=== PATIENT | male | born 1955 | race Caucasian/White ===

== ENCOUNTER 2020-05-20 14:29 | Inpatient (IN) | payer MEDICARE, BC ==
[~2020-05-20] VITALS: Ht 170.2 cm; Wt 65.3 kg
--- NOTE | 2020-05-20 14:29 | NUR ---
PT BIB [facility] C/O NEAR SYNCOPE/WEAKNESS PER EMS. PT IS AAOX3, NOT IN RESPIRATORY DISTRESS, HOOKED TO TOOL HONING MACHINE SET UP OPERATOR, KEPT RESTED AND COMFORTABLE. WILL CONTINUE TO MONITOR.
--- NOTE | 2020-05-20 14:50 | NUR ---
IV LINE ESTABLISHED BLOOD DRAWN AND SENT TO LAB.
--- NOTE | 2020-05-20 14:54 | NUR ---
SEEN AND EXAMINED BY .
--- NOTE | 2020-05-20 14:55 | NUR ---
URINAL GIVEN BUT UNABLE TO PROVIDE URINE SPECIMEN THIS TIME.
[2020-05-20] MEDS ORDERED: IV NS 0.9% 1,000 ML BAG IV ONE (15:00)
--- NOTE | 2020-05-20 15:02 | NUR ---
PCAS AT BEDSIDE FOR XRAY.
[2020-05-20 15:08] LABS: BASOPHILS % (AUTO) 0.3 % (0.0-2.0); EOSINOPHILS % (AUTO) 0.1 % (0.0-6.0); HEMATOCRIT 37 % (39-51); HEMOGLOBIN 12.2 g/dL (13.5-17.5); LYMPHOCYTES # (AUTO) 0.2 /CMM (0.8-4.8); LYMPHOCYTES % (AUTO) 4.8 % (20.0-44.0); MEAN CORPUSCULAR HGB CONC 33 g/dl (31.0-36.0); MEAN CORPUSCULAR VOLUME 95 fL (80-96); MONOCYTES # (AUTO) 0.2 /CMM (0.1-1.30); NEUTROPHILS # (AUTO) 4.7 /CMM (1.8-8.9); NEUTROPHILS % (AUTO) 91.8 % (43.0-81.0); PLATELET COUNT (AUTO) 225 /CMM (150-450); RED BLOOD CELL COUNT(AUTO) 3.91 MIL/uL (4.5-6.0); WHITE BLOOD COUNT (AUTO) 5.2 K/uL (4.3-11.0)
[2020-05-20 15:18] LABS: CALCIUM, SERUM 9.2 mg/dL (8.5-10.1); CREATININE 0.9 mg/dL (0.6-1.3); POTASSIUM 3.2 mmol/L (3.5-5.1)
[2020-05-20 15:24] LABS: BILIRUBIN,DIRECT 0.1 mg/dL (0.0-0.2); BILIRUBIN,TOTAL 0.3 mg/dL (0.2-1.0)
--- NOTE | 2020-05-20 15:32 | NUR ---
URINE SPECIMEN COLLECTED AND SENT TO LAB.
[2020-05-20 15:52] LABS: APPEARANCE,URINE Clear (CLEAR); BILIRUBIN,URINE Negative (NEGATIVE); BLOOD, URINE Moderate Ery/uL (NEGATIVE); COLOR,URINE Yellow (YELLOW); KETONES,URINE 80 (NEGATIVE); LEUKOCYTE ESTERASE ,URINE Negative (NEGATIVE); NITRITE, URINE Negative (NEGATIVE); PH,URINE 5.5 (5.0-8.0); PROTEIN,URINE Negative (NEGATIVE); UGLUCOSE Negative (NEGATIVE); UROBILINOGEN,URINE 0.2 EU/dL (0.2)
[2020-05-20 16:17] LABS: BACTERIA,URINE Few /HPF (None Seen); RBC,URINE 21-50 /HPF (0-2); SQUAMOUS EPITHELIAL CELL,UR Few /HPF (None Seen)
--- NOTE | 2020-05-20 17:24 | NUR ---
CALLED PT RELATIVE CARON [phone]
[2020-05-20] MEDS ORDERED: CEFTRIAXONE 1GM BAG (ER ONLY) 1 GM/50 ML PIGGYBACK IV ONE (19:00)
[2020-05-20] MEDS ORDERED: ONDANSETRON HCL/PF 4 MG/2 ML VIAL IV ONE (19:00)
[2020-05-20] MEDS ORDERED: AZITHROMYCIN 500 MG in IV D5W 250 ML IV ONE (19:00)
[2020-05-20] MEDS ORDERED: HYDROMORPHONE 1 MG/1 ML DISP.SYRIN IV ONE (19:00)
[2020-05-20] MEDS ORDERED: CT SWABBABLE VALVE TRANS SET 1 EA INFUS.SET MC ONE (19:01)
[2020-05-20] MEDS ORDERED: IV NS 0.9% 250 ML IV ONE (19:01)
[2020-05-20] MEDS ORDERED: IOHEXOL-300 100 ML VIAL IV ONE (19:01)
--- NOTE | 2020-05-20 19:07 | NUR ---
REPORT GIVEN TO CJ BRAN FOR AMANDA.
[2020-05-20] MEDS ORDERED: HYDROMORPHONE 1 MG/1 ML DISP.SYRIN ONE (19:12)
[2020-05-20] MEDS ORDERED: ONDANSETRON HCL/PF 4 MG/2 ML VIAL ONE (19:12)
[2020-05-20] MEDS ORDERED: CEFTRIAXONE 1GM BAG (ER ONLY) 50 ML IV ONE (19:12)
--- NOTE | 2020-05-20 19:21 | NUR ---
COVID SAMPLE COLLECTED AND TAKEN TO LAB
--- NOTE | 2020-05-20 19:36 | NUR ---
CALLED RE[facility] RICE FOR ADMISSION
--- NOTE | 2020-05-20 19:56 | NUR ---
CARON LARAIN, DAUGHTER,
--- NOTE | 2020-05-20 19:57 | NUR ---
MIDLINE NURSE FINISHED WITH MIDLINE PROCEDURE MICHAEL 18G ACCESS ESTABLISHED
[2020-05-20] MEDS ORDERED: AZITHROMYCIN 500 MG VIAL ONE (20:03)
--- NOTE | 2020-05-20 20:15 | NUR ---
CALL FROM LAB, COVID 19 NEGATIVE
--- NOTE | 2020-05-20 21:11 | NUR ---
PATIENT TAKEN TO Carlyle Cardona
--- NOTE | 2020-05-20 21:21 | NUR ---
PATIENT RETURNED FROM CT.
[2020-05-20] MEDS ORDERED: HYDROCODONE/APAP 5/325MG TABLET PO PRN (21:30)
[2020-05-20] MEDS ORDERED: ONDANSETRON HCL/PF 4 MG/2 ML VIAL IVP PRN (21:30)
[2020-05-20] MEDS ORDERED: MAGNESIUM HYDROXIDE 30 ML UDC PO PRN (21:30)
[2020-05-20] MEDS ORDERED: ZOLPIDEM TARTRATE 5 MG TABLET PO PRN (21:30)
[2020-05-20] MEDS ORDERED: ACETAMINOPHEN 325 MG TABLET PO PRN (21:30)
[2020-05-20] MEDS ORDERED: Z GUARD REMEDY 2 OZ OINT TP PRN (21:30)
[2020-05-20] MEDS ORDERED: MAG HYDROX/AL HYDROX/SIMETH 30 ML UDC PO PRN (21:30)
--- NOTE | 2020-05-20 21:46 | NUR ---
REPORT GIVEN TO HANNAH CORONA FOR AMANDA.
--- NOTE | 2020-05-20 22:16 | NUR ---
PATIENT AMBULATED TO THE RESTROOM WITH ASSISTANCE
--- NOTE | 2020-05-20 22:24 | NUR ---
REPORT GIVEN TO HANNAH CORONA REGARDING CT SCAN RESULTS. PATIENT OKAY TO GO UP TO ASSIGNED ROOM.
[2020-05-20 22:30] VITALS: BP_SYST 172; BP_SYST 180; BP_DIAS 83; BP_DIAS 89
--- NOTE | 2020-05-20 22:30 | NUR ---
MS CONSULTATIVE SALES ASSOCIATE NOTE RECEIVED PATIENT VIA GURNEY. TRANSFERRED TO BED. PATIENT IS NONVERBAL. NOT ANSWERING QUESTIONS. TOLERATING ROOM AIR. RESPIRATIONS ARE EVEN AND UNLABORED. NO S/S SOB NOTED. PATIENT IS POSSIBLY IN PAIN SHOWN VIA HIGH BLOOD PRESSURE. DOCTOR INFORMED ME TO CALL FAMILY TO OBTAINED MED RECON AND PATIENTS HISTORY. IV ACCESS IN MICHAEL MIDLINE AND LEFT HAND #18 PATENT AND SALINE LOCKED. INFORMED PATIENT HE IS NPO STATUS, INFORMED MECHANICAL ENGINEERING TECHNOLOGIST OF NPO STATUS, NPO SIGN PLACED ON DOORWAY. INATAL PHYSICAL ASSESSMENT DONE AT THIS TIME. SKIN ASSESSMENT COMPLETED, PHOTOS TAKEN AND PLACED IN CHART. MECHANICAL ENGINEERING TECHNOLOGIST OBTAINED VITALS SIGNS AND COMPLETED BELONGING LIST. BED IS LOW AND LOCKED, HOB FLAT, SIDE RAILS UP X3. BED ALARM ON. PAXTON LIGHT WITHIN REACH. WILL CONTINUE TO MONITOR.
--- NOTE | 2020-05-20 22:30 | NUR ---
PATIENT TAKEN UP TO ASSIGNED ROOM
[2020-05-20] MEDS ORDERED: DEXL60CA3 PO (23:19)
[2020-05-20] MEDS ORDERED: CARI350T PO (23:19)
[2020-05-20] MEDS ORDERED: LORA-259 IV (23:19)
[2020-05-20] MEDS ORDERED: HYDR8TAB2 IV (23:19)
[2020-05-20] MEDS ORDERED: ZOLP10TA2 PO (23:19)
[2020-05-20] MEDS ORDERED: MINO2.5T PO (23:19)
--- NOTE | 2020-05-20 23:30 | NUR ---
MS RN NOTE CALLED FAMILY TO OBTAIN PATIENT HISTORY AND MEDICATION. INPUT MEDICATIONS TO MED RECON. CALLED AND INFORMED TRANSPORTATION DRIVER MD DR. NUNEZ OF HISTORYS AND MEDICATION. DOCTOR STATED WILL REVIEW MEDS.
[2020-05-21] VITALS (37 sets, daily range): BP systolic 125–205; BP diastolic 61–96
--- NOTE | 2020-05-21 03:14 | NUR ---
ms rn note administered prn [id number] d/t episode of emesis. will continue to monitor.
--- NOTE | 2020-05-21 03:30 | NUR ---
ms rn note [id number] called [facility] and stucco mason MD Dr. ellis returned my call, informed him patient had a rapid response called on him d/t an episode of emesis and is foaming at the mouth, RN states she witnessed a seizure. MD telephone ordered procalcitonin, blood culture, and 2mg ativan when patient seizes again. orders read back noted and carried out.
--- NOTE | 2020-05-21 03:50 | NUR ---
ms rn note - rapid response patient had an episode of emesis. auto battery builder can to inform RN. when she returned patient began foaming at this mouth and seizing. rapid response called at 032. blood sugar taken 145. 4 mg zofran given. vitals taken 321 axillary temp 100.5 bp 171/86 hr 99 rr 25 o2 sat 91% on room air. patient in high fowlers, suction set up . no longer seizing. 032 bp 150/74 hr 89 o2 sat 91%. patient placed on oxygen 15l via mask. 325 bp 161/71 hr 76 o2 sat 95% on 15l mask. compensation consulting manager MD Dr. Casanova called. MD orders: STAT procalcitonin, blood culture, 2mg ativan if patient seizes again. asked doctor is he would like to order a chest xray d/t patients vomited and o2 sat now 91% on room. MD didnt want to order chest xray at this time because its too soon to tell. lab called to obtain STAT labs. 033 bp 148/68 hr 56 o2 sat 95% on 15l mask. rapid ended patient also placed on tele for observation, seizure precautions in place.
[2020-05-21] MEDS ORDERED: LORAZEPAM INJ 2 MG/ML VIAL IV PRN (04:00)
--- NOTE | 2020-05-21 04:01 | NUR ---
ms rn note adminsitered prn ativan 2mg for seizure. will continue to monitor.
[2020-05-21 04:50] LABS: BASOPHILS % (AUTO) 0.2 % (0.0-2.0); EOSINOPHILS % (AUTO) 0.1 % (0.0-6.0); HEMATOCRIT 37 % (39-51); HEMOGLOBIN 12.4 g/dL (13.5-17.5); LYMPHOCYTES # (AUTO) 0.2 /CMM (0.8-4.8); LYMPHOCYTES % (AUTO) 2.7 % (20.0-44.0); MEAN CORPUSCULAR HGB CONC 33 g/dl (31.0-36.0); MEAN CORPUSCULAR VOLUME 93 fL (80-96); MONOCYTES # (AUTO) 0.3 /CMM (0.1-1.30); NEUTROPHILS # (AUTO) 6.3 /CMM (1.8-8.9); PLATELET COUNT (AUTO) 240 /CMM (150-450); RED BLOOD CELL COUNT(AUTO) 3.99 MIL/uL (4.5-6.0); WHITE BLOOD COUNT (AUTO) 6.8 K/uL (4.3-11.0)
[2020-05-21 05:01] LABS: CALCIUM, SERUM 8.6 mg/dL (8.5-10.1); CREATININE 0.9 mg/dL (0.6-1.3); MAGNESIUM 1.9 mg/dL (1.8-2.4); PHOSPHORUS 1.8 mg/dL (2.5-4.9)
[2020-05-21 05:05] LABS: POTASSIUM 2.7 mmol/L (3.5-5.1)
--- NOTE | 2020-05-21 05:42 | NUR ---
ms rn note received a call from lab to report a critical lab for potassium 2.7. call electronics engineering technologist md Dr. Jocelyne MD telephone order 60meq potassium iv. order read back noted and carried out. also informed that patient is having head pain 03/12 but is npo and nothing is ordered iv. states to monitor because patient just had a seizure. also informed that the daughter is very upset that the patient is in this hospital d/t her mother at [facility]. she is also upset that patient has not received his pain medication or ativan as he takes at home. informed me we are not giving any pain medication or ativan that can alter patietnt d/t patient is altered and findings only show constipation at the moment and constipation should not cause alteredness. will inform daughter when calls again for update. will continue to monitor patient.
[2020-05-21] MEDS: POTASSIUM CHLORIDE 10 MEQ/50 ML PREMIXED IVPB FOR PERIPHERAL LINE IV SCH ×4 (06:17→11:37)
--- NOTE | 2020-05-21 06:45 | NUR ---
ms rn note Dr. Ham saw the patient ordered STAT ABG and CXR. called [facility] exchange for information assoc MD Dr. Casanova.
--- NOTE | 2020-05-21 07:13 | NUR ---
ms rn note transferred patient to icu room 257. patient is nonverbal, on 15l nonrebreather mask. rapid respirations, sounds congested. tele monitor attached to patient hr in 90s. belongings taken, chart taken. report given at bedside.
[2020-05-21] MEDS ORDERED: POTASSIUM PHOSPHATE MM 15 MMOL in IV NS 0.9% 250 ML IV SCH (07:30)
--- NOTE | 2020-05-21 08:00 | NUR ---
BUDGET TECHNICIAN RECEIVED PT FROM 3W FOR RESP DISTRESS AND SEIZURES. PT MOVING, TRYING TO GET UP. DOES NOT FOLLOW COMMANDS. O2 AT [address]
--- NOTE | 2020-05-21 08:01 | NUR ---
ms rn note informed chandler , daughter, that patient was transferred to the ICU room 257.
[2020-05-21 08:18] LABS: ABG BASE EXCESS -0.8 mmol/L; ABG OXYGEN SATURATION 96.6 % (92.0-98.5); ABG PCO2 30.8 mmHg (35.0-45.0); AaDO2 599.2 mmHg; COHb 0.1 % (0.5-1.5); MetHb 0.2 % (0.0-1.5); O2Hb 96.3 % (94.0-97.0); SITE, ABG Left Radial; VENT MODE, BG NRB MASK
[2020-05-21] MEDS: POTASSIUM PHOSPHATE MM 7.5 MMOL in IV D5W 100 ML IV SCH ×2 (08:57→12:01)
--- NOTE | 2020-05-21 09:39 | NUR ---
WOUND CARE CONSULT: PT UNSTABLE TO BE TURNED FOR SKIN ASSESSMENT AT THIS TIME. REVIEWED CHART, NURSING DOCUMENTATION AND PHOTO WHICH INDICATE VERY RED INNER BUTTOCKS, PRESENT ON ADMISSION. PER SCANNER OPERATOR, PT HAD SEVERE DIARRHEA. RECOMMENDATIONS MADE FOR SKIN CARE AND PROTECTION. DISCUSSED WITH NURSING STAFF. PT IS ON OSWALDO ISOFLEX LOW AIRLOSS BED. WILL SEE PRN. HILL IN AGREEMENT WITH PLAN OF CARE.
[2020-05-21] MEDS ORDERED: PROPOFOL 200 MG/20 ML VIAL IV ONE (11:00)
[2020-05-21] MEDS ORDERED: SUCCINYLCHOLINE CHLORIDE 20 MG/ML VIAL ONE (11:00)
--- NOTE | 2020-05-21 11:00 | NUR ---
PLANT PRODUCTION MANAGER PT FOUND GURGLING, UNABLE TO CLEAR AIRWAY. ORALLY AND NASOPHARYNGEALLY SUCTIONED LARGE AMOUNT DARK BROWN FLUID. PT HAD EPISODE EMESIS, LARGE AMOUNT DARK BROWN SECRETIONS. DR ARIAS MADE AWARE. ORDER FOR NGT RECEIVED AND PLACED. POSITION VERIFIED BY AUSCULTATION AND ASPIRATION OF DARK BROWN GASTRIC CONTENTS WITH SYRINGE. DECISION TO INTUBATE PT FOR AIRWAY PROTECTION RECEIVED FROM DR ARIAS. MEMBERSHIP SALES MANAGER NOTIFIED, DR GRECO SUCCESSFULLY INTUBATED PT. CXR OBTAINED FOR PLACEMENT. NGT REMAINED INTACT. DIPRIVAN DRIP TO BE STARTED WHEN AVAILABLE FOR SEDATION. SPOKE WITH DAUGHTER BY PHONE AND INFORMED HER OF PT'S CONDITION.
[2020-05-21] MEDS: PROPOFOL 100 ML IV PRN ×4 (11:35→22:19)
[2020-05-21] MEDS: METRONIDAZOLE 500MG/ NS 100ML 500 MG in PREMIX 1 EA IV SCH ×2 (11:37→17:21)
[2020-05-21 11:51] LABS: ABG BASE EXCESS 2.5 mmol/L; ABG OXYGEN SATURATION 99.7 % (92.0-98.5); ABG PH 7.538 (7.350-7.450); ABG PO2 475.9 mmHg (75.0-100.0); AaDO2 208.1 mmHg; COHb 0.3 % (0.5-1.5); MetHb 0.3 % (0.0-1.5); O2Hb 99.1 % (94.0-97.0); PEEP,BG 5 cm H2O; SITE, ABG Left Radial; VT, ABG 500 mL
--- NOTE | 2020-05-21 12:00 | NUR ---
ICU/RN: RECEIVED REPORT FROM RICHA CORONA TO CONTINUE CARE OF PT. PT INTUBATED AT 1100. ETT 8.0 AC 14, 450, 50%, +5, TOLERATING WELL, NO ACUTE DISTRESS NOTED. SINUS ON TELE. PT AGITATED, STARTED ON DIPRIVAN. NG TUBE IN PLACE TO LIS. ALL NEEDS WILL BE ATTENDED TO, SAFETY MEASURES TAKEN. PLACED ON BILATERAL SOFT WRIST RESTRAINTS FOR SAFETY. RIGHT UA MIDLINE AND PIV PATENT AND INTACT. WILL CONTINUE TO MONITOR AND ASSESS. ORDERS RECEIVED FOR EEG, WILL FOLLOW UP.
[2020-05-21] MEDS: CLOTRIMAZOLE 1% 15 GM TUBE TP SCH ×2 (12:02→17:18)
[2020-05-21] MEDS: LORAZEPAM INJ 2 MG/ML VIAL IV SCH ×2 (15:00→20:00)
[2020-05-21] MEDS: HYDROMORPHONE INJ 2 MG/ML DISP.SYRIN IV SCH ×2 (15:01→21:09)
[2020-05-21 16:42] LABS: ALCOHOL, BLOOD < 3 mg/dL (0-0)
[2020-05-21 16:48] LABS: ALBUMIN 3.3 g/dL (3.4-5.0); BILIRUBIN,TOTAL 0.4 mg/dL (0.2-1.0); CALCIUM, SERUM 9.1 mg/dL (8.5-10.1); CREATININE 0.7 mg/dL (0.6-1.3); POTASSIUM 2.9 mmol/L (3.5-5.1); TOTAL PROTEIN, SERUM 7.4 g/dL (6.4-8.2)
--- NOTE | 2020-05-21 18:01 | NUR ---
ICU/RN: EEG DONE, AWAITING NEUROLOGIST INTERPRETATION
--- NOTE | 2020-05-21 18:30 | NUR ---
ICU/RN: INFORMED LIYAH FOX REGARDING 1500ML RED/BLACK OUTPUT FROM LIS NG SUCTION. NEW ORDERS RECEIVED. WILL ENDORSE TO ACCOUNT SERVICES COORDINATOR
[2020-05-21] MEDS: IV NS 0.9% 1,000 ML IV PRN (18:31)
[2020-05-21] MEDS ORDERED: AZITHROMYCIN 500 MG in IV D5W 250 ML IV SCH ×4 (19:00)
--- NOTE | 2020-05-21 19:23 | NUR ---
ICU/RN ENDING NOTES,AM REPORT ENDORSED TO NIGHT NURSE AMANDA.PT INTUBATED ON VENT SETTINGS ORDERED. DIPRIVAN INFUSING FOR SEDATION. BILATERAL SOFT WRIST RESTRAINTS IN PLACE, ASSESSED PER PROTOCOL. ALL NEEDS ATTENDED TO, SAFETY MEASURES TAKEN, BED IN LOW POSITION, SIDE RAILS UP, CALL LIGHT WITHIN REACH. NG TO LIS, OUTPUT NOTED.
[2020-05-21] MEDS: POTASSIUM CL. PREMIX PERIPHER. 50 ML IV SCH ×4 (19:49→23:18)
--- NOTE | 2020-05-21 20:00 | NUR ---
SERVICE UNIT OPERATOR. INITIAL ASSESSMENTRECEIVED THE PT REST ON THE BED. ORALLY INTUBATED. SEDATED WITH DIPRIVAN. ETT #8.LIP 23,AC 14,TV 450,FIO2 50%,PEEP 5. SAT 98%. NO ACUTE DISTRESS NOTED. DUTY ENGINEER SHOWING NSR. IV RT UPPER ARM MID LINE. IVF NS 125ML/H, DIPRIVAN 60 MCG/KG/MIN, HOB ELEVATED. RT NARE NGT INTACT. LOW INTERMITTENT SUCTION. FC PATENT URINE DRAINING. NPO. JORGITO SOFT WRIST RESTRAINT CHECKED AND RELEASED. NO INJURY OR REDNESS NOTED. AFEBRILE. WILL CONTINUE TO MONITOR VITALS.
[2020-05-21 20:13] LABS: BASOPHILS # (AUTO) 0.1 /CMM (0.0-0.2); BASOPHILS % (AUTO) 0.5 % (0.0-2.0); HEMATOCRIT 39 % (39-51); HEMOGLOBIN 12.8 g/dL (13.5-17.5); LYMPHOCYTES # (AUTO) 0.5 /CMM (0.8-4.8); LYMPHOCYTES % (AUTO) 3.2 % (20.0-44.0); MEAN CORPUSCULAR HGB CONC 33 g/dl (31.0-36.0); MEAN CORPUSCULAR VOLUME 94 fL (80-96); MONOCYTES # (AUTO) 0.7 /CMM (0.1-1.30); MONOCYTES % (AUTO) 4.4 % (2.0-12.0); NEUTROPHILS # (AUTO) 15.2 /CMM (1.8-8.9); NEUTROPHILS % (AUTO) 91.9 % (43.0-81.0); PLATELET COUNT (AUTO) 241 /CMM (150-450); RED BLOOD CELL COUNT(AUTO) 4.14 MIL/uL (4.5-6.0); WHITE BLOOD COUNT (AUTO) 16.6 K/uL (4.3-11.0)
[2020-05-21] MEDS: CEFTRIAXONE 1 G in IV D5W 50 ML IV SCH (21:09)
--- NOTE | 2020-05-21 21:10 | NUR ---
SENIOR TALENT MANAGEMENT CONSULTANT. 1999 FABIAN HELD. PT ORALLY INTUBATED. SEDATED WITH DIPRIVAN.
[2020-05-22] VITALS (40 sets, daily range): BP systolic 97–168; BP diastolic 57–77
[2020-05-22] MEDS: PROPOFOL 100 ML IV PRN ×6 (01:37→23:32)
[2020-05-22] MEDS: LORAZEPAM INJ 2 MG/ML VIAL IV SCH ×4 (02:00→20:00)
--- NOTE | 2020-05-22 02:16 | NUR ---
PIPE SMOKER MACHINE OPERATOR. 0200 ATIVAN NOT GIVEN. PT HAS NO SEIZURE ACTIVITY NOTED, PT ON DIPRIVAN DRIP
[2020-05-22] MEDS: HYDROMORPHONE INJ 2 MG/ML DISP.SYRIN IV SCH ×4 (02:20→20:00)
[2020-05-22] MEDS: METRONIDAZOLE 500MG/ NS 100ML 500 MG in PREMIX 1 EA IV SCH ×3 (02:21→17:19)
[2020-05-22 04:17] LABS: BASOPHILS % (AUTO) 0.1 % (0.0-2.0); HEMATOCRIT 38 % (39-51); HEMOGLOBIN 12.6 g/dL (13.5-17.5); LYMPHOCYTES # (AUTO) 0.6 /CMM (0.8-4.8); LYMPHOCYTES % (AUTO) 6.1 % (20.0-44.0); MEAN CORPUSCULAR HGB CONC 33 g/dl (31.0-36.0); MEAN CORPUSCULAR VOLUME 94 fL (80-96); MONOCYTES # (AUTO) 0.6 /CMM (0.1-1.30); NEUTROPHILS # (AUTO) 9.1 /CMM (1.8-8.9); NEUTROPHILS % (AUTO) 87.8 % (43.0-81.0); PLATELET COUNT (AUTO) 229 /CMM (150-450); RED BLOOD CELL COUNT(AUTO) 4.02 MIL/uL (4.5-6.0); WHITE BLOOD COUNT (AUTO) 10.4 K/uL (4.3-11.0)
[2020-05-22 04:37] LABS: ALBUMIN 3.1 g/dL (3.4-5.0); BILIRUBIN,TOTAL 0.3 mg/dL (0.2-1.0); CALCIUM, SERUM 8.5 mg/dL (8.5-10.1); CREATININE 0.8 mg/dL (0.6-1.3); MAGNESIUM 2.1 mg/dL (1.8-2.4); PHOSPHORUS 3.2 mg/dL (2.5-4.9); TOTAL PROTEIN, SERUM 7.1 g/dL (6.4-8.2)
[2020-05-22 04:59] LABS: POTASSIUM 2.5 mmol/L (3.5-5.1)
--- NOTE | 2020-05-22 05:04 | NUR ---
SCALE TANK OPERATOR. AM CARE, ORAL CARE, BED BATH GIVEN. REMAINING SAME VENT SETTING TOLERATED WELL. SAT 99%. NO ACUTE DISTRESS NOTED.THREE DIMENSIONAL MAP MODELER SHOWING NSR. IV RT UPPER ARM MID LINE IVF NS 125 ML/H.FC PATENT. URINE DRAINING,JORGITO SOFT WRIST RESTRAINT CHECKED AND RELEASED. NO INJURY OR REDNESS NOTED. HOB ELEVATED. NGT LOW INTERMITTENT SUCTION. WILL CONTINUE TO MONITOR VITALS.
[2020-05-22] MEDS: IV NS 0.9% 1,000 ML IV PRN ×2 (05:18→14:47)
[2020-05-22] MEDS: POTASSIUM CL. PREMIX PERIPHER. 50 ML IV SCH ×12 (06:53→18:29)
[2020-05-22] MEDS: ENOXAPARIN SODIUM 40 MG/0.4 ML DISP.SYRIN SQ SCH (08:07)
[2020-05-22] MEDS: CLOTRIMAZOLE 1% 15 GM TUBE TP SCH ×2 (08:09→17:16)
--- NOTE | 2020-05-22 08:32 | NUR ---
received pt from advice clerk, sedated on Diprivan at 90mcg, SR, intubated, sat well, lungs partially congested, no edema, NG to ILS coffee ground emesis, 1BM, f/c OK output, v/s stable, no pain, pt turned and repositioned.
--- NOTE | 2020-05-22 09:00 | NUR ---
Lovenox not given - pt is having coffee ground emesis.
[2020-05-22] MEDS: FAMOTIDINE/PF INJ 20 MG/2 ML VIAL IV SCH ×2 (11:07→20:55)
--- NOTE | 2020-05-22 16:21 | NUR ---
pt is resting in the bed, sedated on Diprivan at 80mcg, SR, sat well, coffee ground emesis suctioned, f/c OK output, v/s stable, no pain, pt cleaned, changed and repositioned q2hrs.
--- NOTE | 2020-05-22 19:30 | NUR ---
AGRICULTURE WORKER RCD PT W/DX ACUTE RESP FAIL; PT IS SEDATED ON DIPRIVAN AT 80 MCG/KG/MIN; PT W/EPISODES OF RESTLESS BSWR IN PLACE TO PREVENT SELF EXTUBATION. PT INTUBATED 8 @ 23 AC 14 450 40% +5 W/ORDERS FOR SIMV IN AM. NSR ON MONITOR. NG LIS W/SEROSANGUINEOUS OUTPUT NOTED. SACRAL REDNESS NOTED W/MEPILEX IN PLACE. MICHAEL MIDLINE PATENT W/NS @ 125 ML/HR. Addendum: 05/22/20 at 2100 by GEORGE NELSON RN FIO2 455 MCCAIN CATH DRAINING GREEN TINGED URINE Addendum: 05/22/20 at 2101 by GEORGE NELSON RN FIO2 45%
--- NOTE | 2020-05-22 19:41 | NUR ---
PT RCVD ORALLY INTUBATED WITH ETT 8.0 SECURED @ 23 CM LIPLINE ON VENT WITH NOTED VENT SETTINGS. SX DONE. VENT PLUGGED INTO RED OUTLET, VENTS ALARMS ON AND AUDIBLE, GEOTHERMAL HVAC TECHNICIAN DONE . AMBU BAG @ BEDSIDE. NO RESPIRATORY DISTRESS NOTED AT THIS TIME . WILL CONTINUE TO MONITOR PT T/O SHIFT.
[2020-05-22] MEDS: CEFTRIAXONE 1 G in IV D5W 50 ML IV SCH (20:00)
[2020-05-23] VITALS (26 sets, daily range): BP systolic 91–200; BP diastolic 53–98
[2020-05-23] MEDS: IV NS 0.9% 1,000 ML IV PRN ×3 (01:19→21:33)
[2020-05-23] MEDS: METRONIDAZOLE 500MG/ NS 100ML 500 MG in PREMIX 1 EA IV SCH ×3 (01:30→17:41)
[2020-05-23] MEDS: LORAZEPAM INJ 2 MG/ML VIAL IV SCH ×4 (02:29→20:00)
[2020-05-23] MEDS: HYDROMORPHONE INJ 2 MG/ML DISP.SYRIN IV SCH ×4 (02:30→20:00)
[2020-05-23] MEDS: PROPOFOL 100 ML IV PRN ×3 (02:30→21:02)
[2020-05-23 04:01] LABS: BASOPHILS % (AUTO) 0.4 % (0.0-2.0); EOSINOPHILS % (AUTO) 0.2 % (0.0-6.0); HEMATOCRIT 35 % (39-51); HEMOGLOBIN 11.8 g/dL (13.5-17.5); LYMPHOCYTES # (AUTO) 0.8 /CMM (0.8-4.8); LYMPHOCYTES % (AUTO) 9.9 % (20.0-44.0); MEAN CORPUSCULAR HGB CONC 33 g/dl (31.0-36.0); MEAN CORPUSCULAR VOLUME 94 fL (80-96); MONOCYTES # (AUTO) 0.6 /CMM (0.1-1.30); MONOCYTES % (AUTO) 7.4 % (2.0-12.0); NEUTROPHILS # (AUTO) 6.4 /CMM (1.8-8.9); NEUTROPHILS % (AUTO) 82.1 % (43.0-81.0); PLATELET COUNT (AUTO) 183 /CMM (150-450); RED BLOOD CELL COUNT(AUTO) 3.75 MIL/uL (4.5-6.0); WHITE BLOOD COUNT (AUTO) 7.8 K/uL (4.3-11.0)
[2020-05-23 04:08] LABS: CALCIUM, SERUM 8.5 mg/dL (8.5-10.1); CREATININE 0.8 mg/dL (0.6-1.3); PHOSPHORUS 3.4 mg/dL (2.5-4.9)
[2020-05-23 04:10] LABS: POTASSIUM 2.8 mmol/L (3.5-5.1)
--- NOTE | 2020-05-23 06:42 | NUR ---
SOCK LINER PT NOTED WAKING UP WHEN PROPOFOL DECREASED TO 70 MCG/KG/MIN TITRATED BACK UP PER PROTOCOL. CONTINUE TO MONITOR.
--- NOTE | 2020-05-23 08:05 | NUR ---
OSMEL RN NOTES STOPPED PROPOFOL DRIP PER DR PELEG IN ORDER TO WEAN OFF THE MECHANICAL VENTILATION
--- NOTE | 2020-05-23 08:10 | NUR ---
ICU/OSMEL RN NOTES RECEIVED PT IN BED.PT IS SEDATED ON MECHANICAL VENTILATION ON 05/25/20 AC 14 TV 450 FIO2 40%PEEP 5.WILL DARLING HIM OFF THE MECHANICAL VENTILATION. NG WITH COFFEE GROUND EMESIS.MICHAEL MIDLINE IS FLUSHING WELL AND INTACT NS IS RUNNING @125 ML/HR.HOB 35. SAFETY MEASUREMENTS ARE TAKEN . BED IS IN THE LOWEST POSITION RAILS ARE UP X2. WILL CONTINUE TO MONITOR
[2020-05-23] MEDS: FAMOTIDINE/PF INJ 20 MG/2 ML VIAL IV SCH ×2 (08:12→21:33)
[2020-05-23] MEDS: ENOXAPARIN SODIUM 40 MG/0.4 ML DISP.SYRIN SQ SCH (08:12)
[2020-05-23] MEDS: CLOTRIMAZOLE 1% 15 GM TUBE TP SCH ×2 (08:21→16:02)
[2020-05-23] MEDS: POTASSIUM CL. PREMIX PERIPHER. 50 ML IV SCH ×10 (08:28→17:18)
--- NOTE | 2020-05-23 09:40 | NUR ---
ICU/OSMEL RN NOTES PT IS STILL VERY SEDATED.
[2020-05-23 09:46] LABS: ABG BASE EXCESS 5.6 mmol/L; ABG OXYGEN SATURATION 98.7 % (92.0-98.5); ABG PCO2 45.3 mmHg (35.0-45.0); ABG PH 7.445 (7.350-7.450); ABG PO2 140.3 mmHg (75.0-100.0); AaDO2 92.8 mmHg; COHb 0.3 % (0.5-1.5); MetHb 0.2 % (0.0-1.5); O2Hb 98.2 % (94.0-97.0); PEEP,BG 5 cm H2O; SITE, ABG Right Radial; VENT MODE, BG SIMV PSV15 40%; VT, ABG 450 mL
[2020-05-23] MEDS ORDERED: METOCLOPRAMIDE HCL 10 MG/2 ML VIAL IV SCH (10:30)
--- NOTE | 2020-05-23 11:07 | NUR ---
WOUND CARE FOLLOW UP: PT CURRENTLY INTUBATED. PER RN, PT UNSTABLE TO BE TURNED FOR SKIN ASSESSMENT AT THIS TIME. RECOMMENDATIONS MADE FOR SKIN PROTECTION. DISCUSSED WITH NURSING STAFF. PT IS ON OSWALDO ISOFLEX LOW AIRLOSS BED. WILL SEE PT PT CONDITION PERMITS. MD IN AGREEMENT WITH PLAN OF CARE.
[2020-05-23] MEDS: METOCLOPRAMIDE HCL 10 MG/2 ML VIAL IV SCH ×2 (11:22→17:35)
--- NOTE | 2020-05-23 11:55 | NUR ---
OSMEL FLIGHT OPERATION COORDINATOR NOTES PT 'S BP 200/87. MD IS INFORMED AND ORDERS ARE FOLLOWED
[2020-05-23] MEDS ORDERED: NITROGLYCERIN PACKET 1 GM PACKET TOP SCH (12:00)
[2020-05-23] MEDS: NITROGLYCERIN 30 GM TUBE TP SCH ×2 (12:10→17:35)
[2020-05-23] MEDS: hydrALAZINE HCL IV 20 MG VIAL IV PRN ×2 (12:17→17:34)
--- NOTE | 2020-05-23 15:00 | NUR ---
ICU/OSMEL RN NOTES DPT IS STILL SEDATED NOT FULLY AWAKE TO START WEANING HIM OFF THE VENTILATOR. INFORMED DR ALEMAN (NEUROLOGIST) ORDER EEG TO SEE ACTIVITIES IN THE BRAIN
--- NOTE | 2020-05-23 16:16 | NUR ---
ICU/OSMEL RN NOTES EEG WAS DONE NO SEIZURE ACTIVITIES. PT STILL LETHARGIC . NOT FULLY AWAKE FOR MECHANICAL VENTILATOR.
[2020-05-23] MEDS ORDERED: LEVETIRACETAM (500MG) 1,000 MG in IV NS 0.9% 100 ML IV ONE (17:00)
--- NOTE | 2020-05-23 18:15 | NUR ---
ICU/ OSMEL CLOSING NOTES PT IS IS IN RESTING MODE. PT IS STILL VERY LETHARGIC DOESN'T FOLLOW THE COMMAND AND DOESN'T OPEN THE EYES. PT MOVES EXTREMITIES. PT IS HR NSR IN HIS 90'S. PT IS IN SIMV MODE. TOLERATING WELL. NG TO ILS COFFEE GROUND EMESIS. MCCAIN CATH OK OUTPUT.VS WNL NO PAIN . PT CLEANED, CHANGED AND REPOSITION.SAFETY MEASUREMENTS ARE IMPLEMENTED. BED IS IN THE LOWEST POSITION AND SIDE RAILS ARE UP X2. WILL ENDORSE TO NIGHTSHIFT FOR AMANDA
--- NOTE | 2020-05-23 19:20 | NUR ---
MECHANICAL ENGINEERING COOP RCD PT OFF SEDATION ON BSWR TO PREVENT SELF EXTUBATION. PT THRASHING AROUND IN BED, LIFTING LEGS UP, MOVING SIDE TO SIDE IN BED. PTS EYES CONTINUOUSLY TWITCHING. PER MD HOLD SCHEDULED DILAUDID AND ATIVAN.
--- NOTE | 2020-05-23 19:30 | NUR ---
BEAD MAKER RAN KERENATERA IV AT THIS TIME.
--- NOTE | 2020-05-23 20:16 | NUR ---
CODE ENFORCEMENT INSPECTOR NON ADMIN ATIVAN AND DILAUDID PER MD ORDER TO HOLD D/T AMS. PT AGITATED AT THIS TIME HOWEVER NO DISTRESS NOTED. CONTINUE TO MONITOR.
[2020-05-23] MEDS: CEFTRIAXONE 1 G in IV D5W 50 ML IV SCH (20:30)
--- NOTE | 2020-05-23 20:41 | NUR ---
DIRECTOR OF CLINICAL TRIALS PT SITTING UP IN BED. REACHING FOR ET TUBE. PT NOTED DIAPHORETIC. CALL PLACED TO DR NUNEZ FOR ORDERS.
--- NOTE | 2020-05-23 20:55 | NUR ---
ATM TECHNICIAN RCD CALL FROM DR NUNEZ TO CALL DR ARIAS FOR SEDATION ORDERS.
--- NOTE | 2020-05-23 21:00 | NUR ---
INKING MACHINE TENDER S/W DR MATTA REGARDING PT AGITATION REACHING FOR ET TUBE AND SITTING UP DESPITE BEING ON BL SOFT WRIST RESTRAINTS. PT ON SIMV MODE. UNABLE TO REDIRECT PT. PER MD RESTART PROPOFOL AT THIS TIME.
--- NOTE | 2020-05-23 22:28 | NUR ---
CELL PREPARER PT ON PROPOFOL AT 50 MCG/KG/MIN AT THIS TIME W/BSWR IN PLACE PT APPEARS CALMER BUT STILL NOTED REACHING ARMS UP. CONTINUE TO MONITOR.
[2020-05-24] VITALS (24 sets, daily range): BP systolic 111–188; BP diastolic 58–85
[2020-05-24] MEDS: METOCLOPRAMIDE HCL 10 MG/2 ML VIAL IV SCH ×4 (00:30→17:15)
[2020-05-24] MEDS: NITROGLYCERIN 30 GM TUBE TP SCH ×4 (00:30→17:15)
[2020-05-24] MEDS: PROPOFOL 100 ML IV PRN ×7 (01:23→21:42)
[2020-05-24] MEDS: METRONIDAZOLE 500MG/ NS 100ML 500 MG in PREMIX 1 EA IV SCH ×3 (02:00→17:11)
[2020-05-24] MEDS: HYDROMORPHONE INJ 2 MG/ML DISP.SYRIN IV SCH ×5 (02:00→20:05)
[2020-05-24] MEDS: LORAZEPAM INJ 2 MG/ML VIAL IV SCH ×4 (02:00→20:00)
[2020-05-24] MEDS: hydrALAZINE HCL IV 20 MG VIAL IV PRN ×3 (02:07→17:51)
[2020-05-24 04:43] LABS: BASOPHILS % (AUTO) 0.3 % (0.0-2.0); EOSINOPHILS % (AUTO) 0.2 % (0.0-6.0); HEMATOCRIT 34 % (39-51); HEMOGLOBIN 11.4 g/dL (13.5-17.5); LYMPHOCYTES # (AUTO) 0.6 /CMM (0.8-4.8); LYMPHOCYTES % (AUTO) 5.6 % (20.0-44.0); MEAN CORPUSCULAR HGB CONC 33 g/dl (31.0-36.0); MEAN CORPUSCULAR VOLUME 95 fL (80-96); MONOCYTES # (AUTO) 0.7 /CMM (0.1-1.30); MONOCYTES % (AUTO) 6.2 % (2.0-12.0); NEUTROPHILS # (AUTO) 9.4 /CMM (1.8-8.9); NEUTROPHILS % (AUTO) 87.7 % (43.0-81.0); PLATELET COUNT (AUTO) 213 /CMM (150-450); RED BLOOD CELL COUNT(AUTO) 3.62 MIL/uL (4.5-6.0); WHITE BLOOD COUNT (AUTO) 10.7 K/uL (4.3-11.0)
[2020-05-24 04:54] LABS: ALBUMIN 2.6 g/dL (3.4-5.0); BILIRUBIN,TOTAL 0.3 mg/dL (0.2-1.0); CALCIUM, SERUM 8.1 mg/dL (8.5-10.1); CREATININE 0.6 mg/dL (0.6-1.3); MAGNESIUM 1.9 mg/dL (1.8-2.4); PHOSPHORUS 2.6 mg/dL (2.5-4.9); TOTAL PROTEIN, SERUM 6.3 g/dL (6.4-8.2)
[2020-05-24 05:40] LABS: POTASSIUM 2.8 mmol/L (3.5-5.1)
[2020-05-24 06:57] LABS: THYROID STIMULATING HORMONE 1.359 uIU/mL (0.358-3.74)
--- NOTE | 2020-05-24 08:00 | NUR ---
received pt from scientific associate, sedated on Diprivan at 45mcg, SR, intubated, SIMV sat well, OG to ILS, f/c OK output, v/s stable, no pain, pt turned and repositioned.
[2020-05-24] MEDS: IV NS 0.9% 1,000 ML IV PRN (08:02)
[2020-05-24] MEDS: FAMOTIDINE/PF INJ 20 MG/2 ML VIAL IV SCH ×2 (08:12→21:05)
[2020-05-24] MEDS: CLOTRIMAZOLE 1% 15 GM TUBE TP SCH ×2 (08:13→17:12)
[2020-05-24] MEDS: LEVETIRACETAM (500MG) 500 MG in IV NS 0.9% 100 ML IV SCH ×2 (08:13→21:05)
[2020-05-24] MEDS: ENOXAPARIN SODIUM 40 MG/0.4 ML DISP.SYRIN SQ SCH (08:13)
[2020-05-24] MEDS: POTASSIUM CL. PREMIX PERIPHER. 50 ML IV SCH ×12 (08:13→19:36)
--- NOTE | 2020-05-24 09:45 | NUR ---
RT PATIENT REC'D ORALLY INTUBATED ON [facility] ON SIMV WEANING MODE. PATIENT PLACED BACK ON AC AND SEDATION GIVEN TO KEEP PATIENT COMFORTABLE WITH LESS AGITATION. PATIENT TOLERATING AC MODE WELL. CONT CURRENT PLAN OF CARE. Addendum: 05/24/20 at 1351 by CECY CUMMINGS RT Amended: Links added.
[2020-05-24 10:14] LABS: CHLORIDE,URINE RANDOM 151 mmol/L (55-125); POTASSIUM RNDM,URINE 96 mmol/L (25-125); URINE SODIUM, RANDOM 152 mmol/l (40-220)
[2020-05-24 11:41] LABS: OSMOLALITY,URINE 887 mOS/kg (340-1090)
--- NOTE | 2020-05-24 16:00 | NUR ---
pt is resting in the bed, sedated on Diprivan at 80mcg, pain meds given per S. Alicia LASER MACHINE OPERATOR, on AC mode for comfort, sat well, OG to ILS, f/c OK output, v/s stable, no pain, pt cleaned, changed and repositioned q2hrs.
--- NOTE | 2020-05-24 19:30 | NUR ---
SLEEVE WHEEL MAKER OPENING NOTES, RECEIVED PATIENT INTUBATED/SEDATED. TOLERATING VENT SETTING WELL. NO SOB OR ACUTE DISTRESS NOTED AT THIS TIME. ETT #8, LIP 23,AC 14,TV 450,FIO2 40%,PEEP 5. NSR ON BEDSIDE TELE MONITOR @60s. IV MICHAEL MID-LINE RUNNING DIPRIVAN @ 80MCG/KG/MIN AND 1/2NS +40mEq POTASSIUM @75 ML/HR. TOLERATING WELL. NO S/S OF INFILTRATION NOTED. OG TUBE CONNECTED TO LOW INTERMITTENT SUCTION, DRAINING DARK COLOR FLUID. FC IN PLACE DRAINING YELLOW/CLEAR URINE TO THE GRAVITY. JORGITO SOFT WRIST RESTRAIN IN PLACE, CHECKED AND ASSESSED. BED IN LOW/LOCKED POSITION. WILL CONTINUE TO MONITOR THE PATIENT CLOSELY.
[2020-05-24] MEDS: CEFTRIAXONE 1 G in IV D5W 50 ML IV SCH (20:04)
[2020-05-24] MEDS: LORAZEPAM INJ 2 MG/ML VIAL IV PRN (23:10)
[2020-05-25] VITALS (24 sets, daily range): BP systolic 95–171; BP diastolic 57–82
[2020-05-25] MEDS: METOCLOPRAMIDE HCL 10 MG/2 ML VIAL IV SCH ×4 (00:16→17:28)
[2020-05-25] MEDS: NITROGLYCERIN 30 GM TUBE TP SCH ×4 (00:19→17:29)
[2020-05-25] MEDS: PROPOFOL 100 ML IV PRN ×8 (00:36→21:12)
[2020-05-25] MEDS: LORAZEPAM INJ 2 MG/ML VIAL IV SCH ×4 (02:00→20:00)
[2020-05-25] MEDS: METRONIDAZOLE 500MG/ NS 100ML 500 MG in PREMIX 1 EA IV SCH ×3 (02:05→17:28)
[2020-05-25] MEDS: HYDROMORPHONE INJ 2 MG/ML DISP.SYRIN IV SCH ×4 (02:05→20:14)
[2020-05-25 04:58] LABS: BASOPHILS % (AUTO) 0.6 % (0.0-2.0); EOSINOPHILS % (AUTO) 5.4 % (0.0-6.0); HEMATOCRIT 38 % (39-51); HEMOGLOBIN 11.8 g/dL (13.5-17.5); LYMPHOCYTES # (AUTO) 0.9 /CMM (0.8-4.8); LYMPHOCYTES % (AUTO) 13.5 % (20.0-44.0); MEAN CORPUSCULAR HGB CONC 31 g/dl (31.0-36.0); MEAN CORPUSCULAR VOLUME 100 fL (80-96); MONOCYTES # (AUTO) 0.4 /CMM (0.1-1.30); MONOCYTES % (AUTO) 6.3 % (2.0-12.0); NEUTROPHILS # (AUTO) 4.8 /CMM (1.8-8.9); NEUTROPHILS % (AUTO) 74.2 % (43.0-81.0); PLATELET COUNT (AUTO) 142 /CMM (150-450); RED BLOOD CELL COUNT(AUTO) 3.82 MIL/uL (4.5-6.0); WHITE BLOOD COUNT (AUTO) 6.5 K/uL (4.3-11.0)
[2020-05-25 05:11] LABS: PHOSPHORUS 3.5 mg/dL (2.5-4.9)
[2020-05-25] MEDS: hydrALAZINE HCL IV 20 MG VIAL IV PRN (05:31)
[2020-05-25 06:19] LABS: ALBUMIN 2.6 g/dL (3.4-5.0); BILIRUBIN,TOTAL 0.3 mg/dL (0.2-1.0); CALCIUM, SERUM 8.6 mg/dL (8.5-10.1); CREATININE 0.6 mg/dL (0.6-1.3); POTASSIUM 4.8 mmol/L (3.5-5.1); TOTAL PROTEIN, SERUM 6.5 g/dL (6.4-8.2)
[2020-05-25 06:32] LABS: MAGNESIUM 1.9 mg/dL (1.8-2.4)
--- NOTE | 2020-05-25 07:09 | NUR ---
DIGITAL MARKETING STRATEGIST CLOSING NOTES, PATIENT INTUBATED/SEDATED. TOLERATING VENT SETTING WELL. NO SOB OR ACUTE DISTRESS NOTED AT THIS TIME. ETT #8, LIP 23,AC 14,TV 450,FIO2 40%,PEEP 5. NSR ON BEDSIDE TELE MONITOR @68s. IV MICHAEL MID-LINE RUNNING DIPRIVAN @ 80MCG/KG/MIN AND 1/2NS +40mEq POTASSIUM @75 ML/HR. TOLERATING WELL. NO S/S OF INFILTRATION NOTED. OG TUBE CONNECTED TO LOW INTERMITTENT SUCTION, DRAINING DARK GREEN COLOR FLUID. FC IN PLACE DRAINING TEA COLOR URINE TO THE GRAVITY. JORGITO SOFT WRIST RESTRAIN IN PLACE, CHECKED AND ASSESSED. BED IN LOW/LOCKED POSITION. WILL ENDORSE THE PATIENT TO AM RN FOR AMANDA.
--- NOTE | 2020-05-25 07:30 | NUR ---
CEMENT GRINDING MILL OPERATOR OPENING NOTES, RECEIVED PATIENT INTUBATED/SEDATED. TOLERATING VENT SETTING WELL. NO SOB OR ACUTE DISTRESS NOTED AT THIS TIME. VENT SETTING ORDERED. NSR ON BEDSIDE TELE MONITOR HR IS AT 80BPM. IV MICHAEL MID-LINE RUNNING DIPRIVAN @ 80MCG/KG/MIN AND 1/2NS +40mEq POTASSIUM @75 ML/HR. TOLERATING WELL. NO S/S OF INFILTRATION NOTED. OG TUBE CONNECTED TO LOW INTERMITTENT SUCTION, DRAINING DARK COLOR FLUID. FC IN PLACE DRAINING YELLOW/CLEAR URINE TO THE GRAVITY. JORGITO SOFT WRIST RESTRAIN IN PLACE, CHECKED AND ASSESSED. BED IN LOW/LOCKED POSITION. SAFETY MAINTAINED, CALL LIGHT WITHIN REACH, WILL CONTINUE TO MONITOR PATIENT CLOSELY.
[2020-05-25] MEDS: FAMOTIDINE/PF INJ 20 MG/2 ML VIAL IV SCH ×2 (08:10→21:12)
[2020-05-25] MEDS: LEVETIRACETAM (500MG) 500 MG in IV NS 0.9% 100 ML IV SCH ×2 (08:10→21:12)
[2020-05-25] MEDS: ENOXAPARIN SODIUM 40 MG/0.4 ML DISP.SYRIN SQ SCH (08:11)
[2020-05-25] MEDS: CLOTRIMAZOLE 1% 15 GM TUBE TP SCH ×2 (08:11→17:26)
[2020-05-25 08:23] LABS: ABG BASE EXCESS -1.1 mmol/L; ABG OXYGEN SATURATION 98.8 % (92.0-98.5); ABG PH 7.421 (7.350-7.450); ABG PO2 141.3 mmHg (75.0-100.0); AaDO2 102.5 mmHg; COHb 0.3 % (0.5-1.5); MetHb 0.5 % (0.0-1.5); PEEP,BG 5 cm H2O; SITE, ABG Left Radial; VENT MODE, BG AC 40%; VT, ABG 450 mL
[2020-05-25] MEDS ORDERED: CLONIDINE HCL 0.2MG/24H PTWK 1 EA PATCH TD SCH (09:00)
[2020-05-25] MEDS: IV 1/2NS 1000 ML 1,000 ML IV PRN (09:42)
--- NOTE | 2020-05-25 18:49 | NUR ---
RN CLOSING NOTES NO ACUTE CHANGES TO PATIENT CONDITION DURING MY SHIFT. ALL PATIENT NEEDS MET. REMAINED SEDATED ON PROPOFOL RUNNING AT 80MCG, TOLERATING WELL, NO SIGNS OF AGITATION NOTED. SR ON THE MONITOR, HR IN THE 80S. BP REMAINED STABLE DURING MY SHIFT. ALL SCHEDULED MEDICATIONS GIVEN ON TIME, SPOKE TO FAMILY TO GIVE AN UPDATE. SAFETY WAS MAINTAINED, CALL LIGHT WITHIN REACH, ENDORSED TO PM NURSE FOR CONTINUITY OF CARE.
--- NOTE | 2020-05-25 19:30 | NUR ---
ICU/RN OPENING NOTES RECEIVED PATIENT INTUBATED SEDATED. TOLERATING VETNT SETTING WELL. NO ACUTE DISTRESS OR SOB NOTED AT THIS MOMENT. RUC PICC LINE RUNNING, PROPOFOL RUNNING AT 80MCG, AND NS @75 ML/HR. TOLERATING WELL, NO S/S OF INFILTRATION NOTED. SR ON THE MONITOR, HR IN THE 60S. BILATERAL SOFT WRIST RESTRAIN NOTED. FC RUNNING DARK/YELLOW URINE TO THE GRAVITY. SAFETY MAINTAINED BED IN LOW/LOCKED POSITION, WILL CONTINUE TO MONITOR THE PATIENT CLOSELY.
[2020-05-25] MEDS: CEFTRIAXONE 1 G in IV D5W 50 ML IV SCH (20:14)
[2020-05-26] VITALS (24 sets, daily range): BP systolic 92–207; BP diastolic 50–96
[2020-05-26] MEDS: METOCLOPRAMIDE HCL 10 MG/2 ML VIAL IV SCH ×5 (00:35→23:23)
[2020-05-26] MEDS: NITROGLYCERIN 30 GM TUBE TP SCH ×5 (00:36→23:27)
[2020-05-26] MEDS: IV 1/2NS 1000 ML 1,000 ML IV PRN (00:59)
[2020-05-26] MEDS: PROPOFOL 100 ML IV PRN ×3 (01:05→07:42)
[2020-05-26] MEDS: LORAZEPAM INJ 2 MG/ML VIAL IV SCH ×4 (02:00→19:43)
[2020-05-26] MEDS: METRONIDAZOLE 500MG/ NS 100ML 500 MG in PREMIX 1 EA IV SCH ×3 (02:52→17:36)
[2020-05-26] MEDS: HYDROMORPHONE INJ 2 MG/ML DISP.SYRIN IV SCH ×4 (02:52→20:06)
[2020-05-26 04:09] LABS: BASOPHILS % (AUTO) 0.5 % (0.0-2.0); EOSINOPHILS % (AUTO) 4.7 % (0.0-6.0); HEMATOCRIT 31 % (39-51); HEMOGLOBIN 10.4 g/dL (13.5-17.5); LYMPHOCYTES # (AUTO) 0.5 /CMM (0.8-4.8); LYMPHOCYTES % (AUTO) 9.3 % (20.0-44.0); MEAN CORPUSCULAR HGB CONC 33 g/dl (31.0-36.0); MEAN CORPUSCULAR VOLUME 95 fL (80-96); MONOCYTES # (AUTO) 0.4 /CMM (0.1-1.30); MONOCYTES % (AUTO) 6.3 % (2.0-12.0); NEUTROPHILS # (AUTO) 4.5 /CMM (1.8-8.9); NEUTROPHILS % (AUTO) 79.2 % (43.0-81.0); PLATELET COUNT (AUTO) 179 /CMM (150-450); WHITE BLOOD COUNT (AUTO) 5.7 K/uL (4.3-11.0)
[2020-05-26 04:18] LABS: CALCIUM, SERUM 7.9 mg/dL (8.5-10.1); CREATININE 0.5 mg/dL (0.6-1.3); POTASSIUM 3.5 mmol/L (3.5-5.1)
--- NOTE | 2020-05-26 06:28 | NUR ---
ICU/RN CLOSING NOTES PATIENT INTUBATED SEDATED. TOLERATING VENT SETTING WELL. NO ACUTE DISTRESS OR SOB NOTED AT THIS MOMENT. RUC PICC LINE RUNNING, PROPOFOL RUNNING AT 65MCG, AND 1/2NS @75 ML/HR. TOLERATING WELL, NO S/S OF INFILTRATION NOTED. SR ON THE MONITOR, HR IN HIGH 50S. BILATERAL SOFT WRIST RESTRAIN NOTED. FC RUNNING DARK/YELLOW URINE TO THE GRAVITY. SAFETY MAINTAINED BED IN LOW/LOCKED POSITION, WILL ENDORSE THE PATIENT TO AM RN FOR AMANDA.
--- NOTE | 2020-05-26 07:25 | NUR ---
OUTPATIENT CASE MANAGER OPENING NOTES: RECEIVED PT IN BED SLEEPING WITH NO SIGNS OF ANY RESPIRATORY DISTRESS, SOB, DIFFICULTY BREATHING OR PAIN. PT ON TRACH AC 16, TV 450, FIO2 40%, PEEP 5, O2 100%. PT IS SEDATED ON TELE SR 60S. IV ACCESS MICHAEL PICC INTACT, PATENT, FLUSHED WELL. PATIENTS SAFETY MEASURES MAINTAINED, CALL LIGHT WITHIN REACH WILL CONTINUE TO MONITOR.
--- NOTE | 2020-05-26 07:43 | NUR ---
WOUND CARE CONSULT: PT SEEN FOR SKIN ASSESSMENT AND NOTED TO HAVE SEMI-LIQUID STOOL. INNER BUTTOCKS RASH IS RESOLVING. SOME RASH AND REDNESS NOTED TO SCROTUM AND PERINEUM. RECOMMENDATIONS MADE FOR SKIN PROTECTION. DISCUSSED WITH NURSING STAFF. PT IS ON OSWADLO ISOFLEX LOW AIRLOSS BED. WILL SEE PRN. HILL IN AGREEMENT WITH PLAN OF CARE. Addendum: 05/26/20 at 0745 by ALISIA SMITH WNDNU Amended: Links added.
[2020-05-26 08:08] LABS: ABG BASE EXCESS -0.7 mmol/L; ABG OXYGEN SATURATION 98.2 % (92.0-98.5); ABG PCO2 33.7 mmHg (35.0-45.0); ABG PH 7.448 (7.350-7.450); ABG PO2 108.9 mmHg (75.0-100.0); AaDO2 137.5 mmHg; COHb 0.3 % (0.5-1.5); MetHb 0.3 % (0.0-1.5); O2Hb 97.6 % (94.0-97.0); PEEP,BG 5 cm H2O; SITE, ABG Right Radial; VT, ABG 450 mL
--- NOTE | 2020-05-26 08:13 | NUR ---
Fio2 decreased from 40% to 30% due to 108 pao2 and 99 - 100% spo2. rn notified on changes. Addendum: 05/26/20 at 0814 by MEHDI KIDD RT Amended: Links added.
[2020-05-26] MEDS: CLOTRIMAZOLE 1% 15 GM TUBE TP SCH ×2 (08:16→16:47)
[2020-05-26] MEDS: Potassium Chloride 10 MEQ in IV D5/0.45 NACL 1,000 ML IV SCH ×2 (08:22→21:34)
[2020-05-26] MEDS: FAMOTIDINE/PF INJ 20 MG/2 ML VIAL IV SCH ×2 (08:22→20:07)
[2020-05-26] MEDS: LEVETIRACETAM (500MG) 500 MG in IV NS 0.9% 100 ML IV SCH ×2 (08:22→20:50)
--- NOTE | 2020-05-26 09:49 | NUR ---
RN NOTE TURNED OFF PROPOFOL PER MD ORDER. WAITING FOR PATIENT TO WAKE UP. SPOKE TO PATIENTS DAUGHTER, WANTS TO SPEAK TO THE DR. ASKED DR. ARIAS TO GIVE HER A CALL WHEN HE HAS A CHANCE. PER MD, WILL CALL. SAFETY MAINTAINED, CALL LIGHT WITHIN REACH, WILL CONTINUE TO MONITOR CLOSELY.
[2020-05-26] MEDS: ENOXAPARIN SODIUM 40 MG/0.4 ML DISP.SYRIN SQ SCH (11:49)
--- NOTE | 2020-05-26 12:05 | NUR ---
INFORMATION TECHNOLOGY ASSISTANT NOTES: LOVENOX WAS HELD FOR 0900AM TO VERIFY WITH DR FOX IF ITS OK TO GIVE , PER MD ORDER IT IS OK TO GIVE LOVENOX AT THIS MOMENT.
[2020-05-26] MEDS: LORAZEPAM INJ 2 MG/ML VIAL IV PRN (17:44)
--- NOTE | 2020-05-26 18:43 | NUR ---
IT APPLICATION ADMINISTRATOR CLOSING NOTES: PT WAS TAKEN OFF PROPOFOL, MOVED SLIGHTLY, AND OPENED HIS EYES, BUT HE IS STILL NOT ABUSABLE. PT ON TRACH, FIO2 30%. PT STILL REMAINS NPO. IV SITES MICHAEL PICC LINE INTACT, PATENT FLUSHED WELL. PT DID NOT SHOW ANY SIGNS OF RESPIRATOR DISTRESS, NO SIGNS OF SOB, PT DID SHOW SIGNS OF PAIN AND MEDICATION WAS GIVEN. PTS COMFORT MEASURES TAKEN, SAFETY MEASURES MAINTAINED, WILL ENDORSE TO PM NURSE FOR CONTINUATION OF CARE.
--- NOTE | 2020-05-26 19:30 | NUR ---
RN NOTE RECEIVED PT IN STABLE CONDITION. INTUBATED AND TOLERATING VENT SETTINGS WELL. PT IS AWAKE IN BED AND ABLE TO OPEN EYES AND FOLLOW COMMANDS. OFF SEDATION. MCCAIN CATHETER IN PLACE AND DRAINING CLEAR YELLOW URINE. OGT IN PLACE CONNECTING TO LOW INTERMITTENT SUCTION. RESTAINTS IN PLACE. CALL LIGHT WITHI REACH, SAFETY MEASURES IN PLACE, PLAN OF CARE DISCUSSED WITH PATIENT, WILL MONITOR PATIENT.
[2020-05-26] MEDS: CEFTRIAXONE 1 G in IV D5W 50 ML IV SCH (19:43)
--- NOTE | 2020-05-26 20:00 | NUR ---
RN NOTE SPOKE TO PHARMACY. OK TO ADMINISTER ROCEPHIN IV AND CURRENT IV FLUIDS THEY ARE COMPATIBLE.
--- NOTE | 2020-05-26 20:07 | NUR ---
RN NOTE CLARIFICATION: PT HAS A MICHAEL MIDLINE, NOT A PICC LINE.
--- NOTE | 2020-05-26 22:13 | NUR ---
RN NOTE SPOKE TO CARON (DAUGHTER). GAVE UPDATE REGARDING PATIENT'S STATUS WELL PLAN OF CARE.
--- NOTE | 2020-05-26 22:14 | NUR ---
RN NOTE NOTIFIED BY LAB THAT RENIN AND ALDOSTERONE TEST RESULTS WERE REJECTED. ORDERS PUT IN FOR REPEAT TESTS.
[2020-05-27] VITALS (26 sets, daily range): BP systolic 93–192; BP diastolic 58–103
[2020-05-27] MEDS: HYDROMORPHONE INJ 2 MG/ML DISP.SYRIN IV SCH ×4 (01:05→20:55)
[2020-05-27] MEDS: METRONIDAZOLE 500MG/ NS 100ML 500 MG in PREMIX 1 EA IV SCH ×3 (01:05→18:15)
[2020-05-27] MEDS: LORAZEPAM INJ 2 MG/ML VIAL IV SCH ×4 (01:23→20:10)
--- NOTE | 2020-05-27 01:45 | NUR ---
RN NOTE PT BELONGINGS (NECKLACE, WATCH, AND CELLPHONE) RECORDED ON INVENTORY LIST AND LOCKED IN SAFE AT [facility] OFFICE BY BIGHT MAKER RENEE.
[2020-05-27 04:16] LABS: BASOPHILS % (AUTO) 0.4 % (0.0-2.0); HEMATOCRIT 23 % (39-51); HEMOGLOBIN 7.6 g/dL (13.5-17.5); LYMPHOCYTES # (AUTO) 0.9 /CMM (0.8-4.8); MEAN CORPUSCULAR HGB CONC 34 g/dl (31.0-36.0); MEAN CORPUSCULAR VOLUME 93 fL (80-96); MONOCYTES # (AUTO) 0.6 /CMM (0.1-1.30); MONOCYTES % (AUTO) 7.3 % (2.0-12.0); NEUTROPHILS # (AUTO) 6.2 /CMM (1.8-8.9); NEUTROPHILS % (AUTO) 79.3 % (43.0-81.0); PLATELET COUNT (AUTO) 234 /CMM (150-450); RED BLOOD CELL COUNT(AUTO) 2.41 MIL/uL (4.5-6.0); WHITE BLOOD COUNT (AUTO) 7.8 K/uL (4.3-11.0)
[2020-05-27 04:29] LABS: CALCIUM, SERUM 8.1 mg/dL (8.5-10.1); CREATININE 0.6 mg/dL (0.6-1.3); MAGNESIUM 1.8 mg/dL (1.8-2.4); PHOSPHORUS 2.8 mg/dL (2.5-4.9); POTASSIUM 3.1 mmol/L (3.5-5.1)
[2020-05-27] MEDS: hydrALAZINE HCL IV 20 MG VIAL IV PRN ×2 (04:37→17:58)
[2020-05-27] MEDS: METOCLOPRAMIDE HCL 10 MG/2 ML VIAL IV SCH ×3 (05:38→17:57)
[2020-05-27] MEDS: NITROGLYCERIN 30 GM TUBE TP SCH ×3 (05:38→18:15)
[2020-05-27] MEDS: LORAZEPAM INJ 2 MG/ML VIAL IV PRN ×2 (06:08→17:57)
--- NOTE | 2020-05-27 07:21 | NUR ---
RN CLOSING NOTE NO ACUTE CHANGES OBSERVED OVERNIGHT. ALL NEEDS MET AND ATTENDED TO. ENDORSED TO MORNING RN FOR CONTINUATION OF CARE.
[2020-05-27] MEDS: LEVETIRACETAM (500MG) 500 MG in IV NS 0.9% 100 ML IV SCH ×2 (08:20→20:30)
[2020-05-27] MEDS: POTASSIUM CL. PREMIX PERIPHER. 50 ML IV SCH ×4 (08:20→14:47)
[2020-05-27] MEDS: FAMOTIDINE/PF INJ 20 MG/2 ML VIAL IV SCH ×2 (08:20→20:10)
[2020-05-27] MEDS: CLOTRIMAZOLE 1% 15 GM TUBE TP SCH ×2 (08:21→18:18)
[2020-05-27 09:40] LABS: BASOPHILS % (AUTO) 0.3 % (0.0-2.0); EOSINOPHILS % (AUTO) 0.3 % (0.0-6.0); HEMATOCRIT 36 % (39-51); LYMPHOCYTES # (AUTO) 0.4 /CMM (0.8-4.8); LYMPHOCYTES % (AUTO) 5.3 % (20.0-44.0); MEAN CORPUSCULAR HGB CONC 33 g/dl (31.0-36.0); MEAN CORPUSCULAR VOLUME 94 fL (80-96); MONOCYTES # (AUTO) 0.4 /CMM (0.1-1.30); MONOCYTES % (AUTO) 6.7 % (2.0-12.0); NEUTROPHILS # (AUTO) 5.8 /CMM (1.8-8.9); NEUTROPHILS % (AUTO) 87.4 % (43.0-81.0); PLATELET COUNT (AUTO) 221 /CMM (150-450); RED BLOOD CELL COUNT(AUTO) 3.89 MIL/uL (4.5-6.0); WHITE BLOOD COUNT (AUTO) 6.7 K/uL (4.3-11.0)
[2020-05-27 10:14] LABS: ABG BASE EXCESS 4.7 mmol/L; ABG OXYGEN SATURATION 96.2 % (92.0-98.5); ABG PCO2 31.2 mmHg (35.0-45.0); ABG PO2 76.9 mmHg (75.0-100.0); AaDO2 100.3 mmHg; COHb 0.3 % (0.5-1.5); MetHb 0.2 % (0.0-1.5); O2Hb 95.7 % (94.0-97.0); SITE, ABG Right Radial
[2020-05-27] MEDS: ENOXAPARIN SODIUM 40 MG/0.4 ML DISP.SYRIN SQ SCH (10:23)
--- NOTE | 2020-05-27 14:10 | NUR ---
RT PER DR RODRÍGUEZ ORDER PATIENT WAS EXTUBATED AND PLACED ON 3L N/C MULU WELL. NO SOB NOTED.
[2020-05-27] MEDS: Potassium Chloride 10 MEQ in IV D5/0.45 NACL 1,000 ML IV SCH (14:47)
--- NOTE | 2020-05-27 18:44 | NUR ---
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 SPO2 90% on 4L O2 via NC, RR 25-35. Patient restless, verbal, following command. Oriented to ? does not respond to questions appropriately. SR/ST 80s-100s. OGT was attached to LIS prior to extubation 650mL out this shift light brown color. With extubation, OGT was removed. RN attempted NGT, not able - Viloeta Gonzalez NOTEMAN aware. BM x1 small, green, yellow, liquid. Cdiff order in place as prior order auto cancelled after 3 days. Lopez 450mL output. Wound care as ordered, mepilex placed, turned per protocol with patient moving around independently MICHAEL midline infusing KCL 10 meqs+d51/2NS@75mL/hr. L CW clonidine patch. BP elevated, hydralazine PRN given, ativan due to agitation. temp 100.1F oral. Daughter updated Addendum: 05/27/20 at 1901 by ALMA DELIA BAILEY RN increased to 5L, patient very wet sounding, endorse calling RT .. Addendum: 05/27/20 at 1913 by ALMA DELIA BAILEY RN bed alarm on
--- NOTE | 2020-05-27 19:15 | NUR ---
RN NOTE RECEIVED PATIENT ON BED S/P EXTUBATED TODAY AT 2PM AOX2-3 VERBALLY RESPONSIVE AND ABLE TO VERBALIZED FEELINGS. JORGITO LUNG SOUND CRACKLES HEARD RECEIVED WITH SATURATION 93% ON O2 7 LPM ON NASAL CANULA,TITRATED IT TO 4LPM AND SATURATING 94%, DEEP SUCTIONED PROVIDED, WITH MODERATE AMT OF WHITISH THICK SECRETION WITH SMALL AMT OF BLOOD SHOWN. NOTED THAT PATIENT HAS LIQUID GREENISH STOOL PRESENT ALL OVER THE BODY. PATIENT HAS MCCAIN CATHETER WITH CLEAR YELLOW URINE. BED BATH DONE,NURSING MEASURES PROVIDED. SAFETY MEASURES IN PLACE, WITH PADDED SIDE RAILS BED IN LOWEST POSSIBLE POSITION. KEPT PT CLEAN AND DRY. BED ALARM ON. ENCOURAGED TO TURN AND REPOSITION WITH MINIMAL ASSIST ON BED. RISK AND BENEFITS REMINDED. CALL LIGHT KEPT WITHIN EASY REACH INSTRUCTION PROVIDED. WILL CONTINUE TO MONITOR.
[2020-05-27] MEDS: CEFTRIAXONE 1 G in IV D5W 50 ML IV SCH (20:11)
[2020-05-28] VITALS (15 sets, daily range): BP systolic 112–167; BP diastolic 64–98
[2020-05-28] MEDS: NITROGLYCERIN 30 GM TUBE TP SCH ×2 (00:20→06:15)
[2020-05-28] MEDS: METOCLOPRAMIDE HCL 10 MG/2 ML VIAL IV SCH ×4 (00:21→17:45)
[2020-05-28] MEDS: METRONIDAZOLE 500MG/ NS 100ML 500 MG in PREMIX 1 EA IV SCH ×3 (01:13→18:07)
[2020-05-28] MEDS: LORAZEPAM INJ 2 MG/ML VIAL IV SCH ×2 (01:16→08:19)
[2020-05-28] MEDS: HYDROMORPHONE INJ 2 MG/ML DISP.SYRIN IV SCH ×2 (02:07→08:25)
--- NOTE | 2020-05-28 04:20 | NUR ---
RN NOTES BEDBATH DONE URINE AND STOOL SPECIMEN COLLECTED AND SEND TO LABS.
[2020-05-28] MEDS: Potassium Chloride 10 MEQ in IV D5/0.45 NACL 1,000 ML IV SCH (04:26)
[2020-05-28 04:38] LABS: OSMOLALITY,URINE 545 mOS/kg (340-1090)
[2020-05-28 04:43] LABS: CHLORIDE,URINE RANDOM 187 mmol/L (55-125); POTASSIUM RNDM,URINE 27 mmol/L (25-125); URINE SODIUM, RANDOM 194 mmol/l (40-220)
--- NOTE | 2020-05-28 07:00 | NUR ---
RN NOTES PATIENT REMAINED STABLE O2 TOLERATED AT 2LPM VIA NC, SATURATION 98%.A FEBRILE. HTN NOTED, MEDICINE AND RELAXATION TECHNIQUE HELPS. PATIENT IS MORE AWAKE AND FEEL MUCH BETTER TODAY COMPLAINING OF HEADACHE THIS MORNING. NO SIGNIFICANT CHANGES, NO SOB. KEPT PT CLEAN AND DRY. ENDORSED CONT/ OF CARE
--- NOTE | 2020-05-28 07:30 | NUR ---
RN OPENING NOTE: RECEIVED PATIENT IN BED THIS MORNING. PATIENT IS ALERT AND ORIENTED X2, DELAYED RESPONSES NOTED. O2 2L/MIN VIA NC, SATING WELL, NO SIGNS OF ACUTE DISTRESS NOTED AT THIS TIME. PATIENT HAS MICHAEL MIDLINE, FLUSHING WELL, C/D/I, NO SIGNS OF COMPLICATIONS NOTED. PATIENT HAS MCCAIN, DRAINING URINE. WOUND CARE PER ORDERS. PATIENT IS CURRENTLY NPO, WILL ORDER ST/PT EVAL FOR BASELINE AND SAFETY CHECK. A&P TECHNICIAN RN SENT OUT STOOL SPECIMEN FOR C. DIFF. SAFETY MEASURES IMPLEMENTED, BED IN LOWEST POSITION, LOCKED, SIDE RAILS UP, CALL LIGHT WITHIN REACH. WILL CONTINUE TO MONITOR PATIENT FOR CHANGES.
[2020-05-28 08:13] LABS: CALCIUM, SERUM 8.3 mg/dL (8.5-10.1); CREATININE 0.6 mg/dL (0.6-1.3)
[2020-05-28 08:14] LABS: BASOPHILS % (AUTO) 0.3 % (0.0-2.0); EOSINOPHILS % (AUTO) 0.5 % (0.0-6.0); HEMATOCRIT 34 % (39-51); HEMOGLOBIN 11.4 g/dL (13.5-17.5); LYMPHOCYTES # (AUTO) 0.6 /CMM (0.8-4.8); LYMPHOCYTES % (AUTO) 8.7 % (20.0-44.0); MEAN CORPUSCULAR HGB CONC 34 g/dl (31.0-36.0); MEAN CORPUSCULAR VOLUME 93 fL (80-96); MONOCYTES # (AUTO) 0.5 /CMM (0.1-1.30); MONOCYTES % (AUTO) 7.6 % (2.0-12.0); NEUTROPHILS # (AUTO) 5.7 /CMM (1.8-8.9); NEUTROPHILS % (AUTO) 82.9 % (43.0-81.0); PLATELET COUNT (AUTO) 246 /CMM (150-450); RED BLOOD CELL COUNT(AUTO) 3.68 MIL/uL (4.5-6.0); WHITE BLOOD COUNT (AUTO) 6.8 K/uL (4.3-11.0)
[2020-05-28 08:16] LABS: POTASSIUM 2.8 mmol/L (3.5-5.1)
[2020-05-28 08:19] LABS: ALBUMIN 2.5 g/dL (3.4-5.0); BILIRUBIN,TOTAL 0.4 mg/dL (0.2-1.0); MAGNESIUM 1.8 mg/dL (1.8-2.4); PHOSPHORUS 2.4 mg/dL (2.5-4.9); TOTAL PROTEIN, SERUM 6.4 g/dL (6.4-8.2)
[2020-05-28] MEDS: ENOXAPARIN SODIUM 40 MG/0.4 ML DISP.SYRIN SQ SCH (08:19)
[2020-05-28] MEDS: ISOSORBIDE DINITRATE (20MG) 20 MG TABLET PO SCH ×2 (08:34→17:48)
[2020-05-28] MEDS: PANTOPRAZOLE 40 MG TABLET.DR PO SCH (08:35)
[2020-05-28] MEDS: CLOTRIMAZOLE 1% 15 GM TUBE TP SCH ×2 (08:35→17:48)
[2020-05-28] MEDS: hydrALAZINE HCL 50 MG TABLET PO SCH ×3 (08:35→17:47)
[2020-05-28] MEDS: LEVETIRACETAM (500MG) 500 MG in IV NS 0.9% 100 ML IV SCH ×2 (09:03→21:32)
--- NOTE | 2020-05-28 09:31 | NUR ---
CONTACTED [facility] TO REPORT CRITICAL POTASSIUM VALUES. AWAITING CALL BACK.
--- NOTE | 2020-05-28 09:44 | NUR ---
CARRIAGE RIDER NOTE RELAYED POTASSIUM 2.8 TO AUTOMOBILE MECHANIC MOTOR ERA GOSS. WITH ORDERS TO CHANGE IVF TO D5 1/2NS WITH 40MEQ KCL AT 75ML/HR. NOTED.
[2020-05-28] MEDS ORDERED: Potassium Chloride 40 MEQ in IV D5/0.45 NACL 1,000 ML IV PRN (10:00)
[2020-05-28] MEDS ORDERED: POTASSIUM CHLORIDE 20 MEQ POWDER PACKET PO ONE ×2 (10:30→14:00)
[2020-05-28] MEDS ORDERED: POTASSIUM CHLORIDE 20 MEQ POWDER PACKET PO SCH (10:30)
--- NOTE | 2020-05-28 10:52 | NUR ---
TRANSFERRED PATIENT TO [address] [place] [address]. NO ACUTE DISTRESS NOTED UPON TRANSFER. GAVE REPORT TO CJ GARCÍA. ENDORSED FOR CONTINUATION OF CARE/ K+ SUPPLEMENTATION FOR LEVEL OF 2.8. ALSO, THAT STOOL SAMPLE WAS ALREADY SENT FOR C. DIFF. SAFETY MEASURES WERE IMPLEMENTED. PATIENT'S BELONGINGS TRANSFERRED WITH PATIENT.
[2020-05-28] MEDS ORDERED: Sodium Phosphate 15 MMOL in IV NS 0.9% 95 ML IV SCH (11:00)
--- NOTE | 2020-05-28 11:11 | NUR ---
TANK FURNACE OPERATOR NOTES RECEIVED PATIENT VIA BED FROM ICU, CJ LONG. PATIENT ALERT AND ORIENTED X1-2. HOB ELEVATED. ON O2 VIA NC AT 2L/MIN. RIGHT UPPER ARM MIDLINE INTACT. MCCAIN CATHETER INTACT AND PATENT DRAINING YELLOW COLORED VIA BEDSIDE. ORIENTED PATIENT TO ROOM, UNIT, CALL LIGHT. BED IN LOWEST POSITION, LOCKED. BED ALARM ON. FREQUENT VISUAL CHECK DONE.
--- NOTE | 2020-05-28 11:12 | NUR ---
DEBONE PROCESSING SUPERVISOR NOTES ON TELEMONITORING SR: 94.
[2020-05-28] MEDS: HYDROMORPHONE HCL 2 MG TABLET PO SCH ×2 (12:04→17:47)
[2020-05-28] MEDS: LORAZEPAM 1 MG TABLET PO SCH ×2 (12:58→17:46)
[2020-05-28] MEDS ORDERED: NALOXONE HCL 0.4 MG/ML AMPUL IV PRN (17:30)
[2020-05-28] MEDS: LORAZEPAM INJ 2 MG/ML VIAL IV PRN (17:37)
[2020-05-28] MEDS: MINOXIDIL (2.5MG) 2.5 MG TABLET PO SCH (17:46)
[2020-05-28] MEDS: IV NS 0.9% 1,000 ML IV PRN (18:10)
--- NOTE | 2020-05-28 18:45 | NUR ---
ASSISTANT PROPERTY MANAGER NOTES PATIENT RESTING COMFORTABLY IN BED, ASLEEP BUT AROUSABLE TO VERBAL AND TACTILE STIMULI. HOB ELEVATED. REMAIN ON O2 VIA NC AT 2L/MIN MULU WELL. NO S/S OF RESPIRATORY DISTRESS. RIGHT UPPER ARM MIDLINE INTACT AND PATENT INFUSING NS AT 75ML/HR MULU WELL. MCCAIN CATHETER INTACT AND PATENT DRAINING YELLOW COLORED VIA BEDSIDE. DURING THE SHIFT, NOTED PATIENT RESISTLESS, NON-COMPLIANT, UNABLE TO BE REDIRECTED DESPITE OF EDUCATION AND EXPLANATIONS WITH EPISODES OF PULLING OUT IV TUBING, MCCAIN CATHETER AND REMOVER HEART MONITOR AND THROWING TELE BOX ON FLOOR AND ON BED. PATIENT ABLE TO AMBULATE, UNSTEADY BUT ABLE TO STABILIZE SELF ONCE UP AND AMBULATES WITH THE USE OF FWW WITH ASSISTANCE. BED IN LOWEST POSITION ,LOCKED. CALL LIGHT WITHIN REACH. IN NO APPARENT DISTRESS. FREQUENT VISUAL CHECK DONE.
[2020-05-28] MEDS: CEFTRIAXONE 1 G in IV D5W 50 ML IV SCH (19:58)
[2020-05-28] MEDS ORDERED: CARISOPRODOL 350 MG TABLET PO PRN (22:00)
[2020-05-29] VITALS (8 sets, daily range): BP systolic 131–182; BP diastolic 70–93
[2020-05-29] MEDS: LORAZEPAM 1 MG TABLET PO SCH ×4 (00:53→17:44)
[2020-05-29] MEDS: METOCLOPRAMIDE HCL 10 MG/2 ML VIAL IV SCH ×4 (00:53→17:43)
[2020-05-29] MEDS: HYDROMORPHONE HCL 2 MG TABLET PO SCH ×4 (00:54→17:44)
[2020-05-29] MEDS: METRONIDAZOLE 500MG/ NS 100ML 500 MG in PREMIX 1 EA IV SCH ×2 (02:22→09:20)
--- NOTE | 2020-05-29 06:17 | NUR ---
LENS MARKER NOTES AWAKE & RESPONSIVE. NOT IN ANY DISTRESS. NO SOB NOTED. DENIES ANY PAIN OR DISCOMFORT AT THIS TIME. ON TELE SR @ 83 WITH IVF INFUSING WELL. AM CARE DONE. MONITORED ACCORDINGLY. CALL LIGHT WITHIN REACH. BED IN LOWEST POSITION. SR UP X 2 FOR SAFETY. WILL ENDORSE TO NEXT SHIFT.
[2020-05-29 07:12] LABS: BASOPHILS % (AUTO) 0.7 % (0.0-2.0); EOSINOPHILS % (AUTO) 1.8 % (0.0-6.0); HEMATOCRIT 38 % (39-51); HEMOGLOBIN 12.7 g/dL (13.5-17.5); LYMPHOCYTES # (AUTO) 0.8 /CMM (0.8-4.8); LYMPHOCYTES % (AUTO) 12.4 % (20.0-44.0); MEAN CORPUSCULAR HGB CONC 33 g/dl (31.0-36.0); MEAN CORPUSCULAR VOLUME 93 fL (80-96); MONOCYTES # (AUTO) 0.5 /CMM (0.1-1.30); MONOCYTES % (AUTO) 8.3 % (2.0-12.0); NEUTROPHILS # (AUTO) 4.9 /CMM (1.8-8.9); NEUTROPHILS % (AUTO) 76.8 % (43.0-81.0); PLATELET COUNT (AUTO) 279 /CMM (150-450); RED BLOOD CELL COUNT(AUTO) 4.14 MIL/uL (4.5-6.0); WHITE BLOOD COUNT (AUTO) 6.4 K/uL (4.3-11.0)
--- NOTE | 2020-05-29 07:35 | NUR ---
PATIENT ACCOUNT REPRESENTATIVE OPENING NOTE RECEIVED PATIENT IN BED SLEEPING, RESTING COMFORTABLY. PATIENT IN NO ACUTE DISTRESS. NO SOB NOTED. PATIENT BREATHING IS EVEN AND UNLABORED. PATIENT ON CARDIAC MONITORING READING SINUS RHYTHM HR 72. SAFETY PRECAUTIONS IN PLACE. PATIENT WITH 1:1 SITTER. BED ALARM IS ON. PATIENT BED IS LOCKED AND IN LOWEST POSITION. CALL LIGHT WITHIN REACH. WILL CONTINUE TO MONITOR.
[2020-05-29 08:01] LABS: ALBUMIN 2.8 g/dL (3.4-5.0); BILIRUBIN,TOTAL 0.4 mg/dL (0.2-1.0); CALCIUM, SERUM 8.7 mg/dL (8.5-10.1); CREATININE 0.6 mg/dL (0.6-1.3); MAGNESIUM 1.8 mg/dL (1.8-2.4); PHOSPHORUS 2.8 mg/dL (2.5-4.9); TOTAL PROTEIN, SERUM 7.1 g/dL (6.4-8.2)
[2020-05-29 08:04] LABS: POTASSIUM 2.8 mmol/L (3.5-5.1)
[2020-05-29] MEDS: IV NS 0.9% 1,000 ML IV PRN ×2 (08:30→22:02)
[2020-05-29] MEDS: LEVETIRACETAM (500MG) 500 MG in IV NS 0.9% 100 ML IV SCH ×2 (08:30→20:48)
[2020-05-29] MEDS: CLOTRIMAZOLE 1% 15 GM TUBE TP SCH ×2 (08:31→16:30)
[2020-05-29] MEDS: hydrALAZINE HCL 50 MG TABLET PO SCH ×3 (08:35→16:29)
[2020-05-29] MEDS: MINOXIDIL (2.5MG) 2.5 MG TABLET PO SCH ×2 (08:35→16:30)
[2020-05-29] MEDS: ISOSORBIDE DINITRATE (20MG) 20 MG TABLET PO SCH ×2 (08:36→16:30)
[2020-05-29] MEDS: PANTOPRAZOLE 40 MG TABLET.DR PO SCH (08:36)
[2020-05-29] MEDS: ENOXAPARIN SODIUM 40 MG/0.4 ML DISP.SYRIN SQ SCH (08:37)
--- NOTE | 2020-05-29 09:31 | NUR ---
CLIENT ENGAGEMENT MANAGER NOTE PATIENT POTASSIUM 2.8 REPORTED RESULTS TO ERA GOSS. ORDERS FOR POTASSIUM [address] ARIAS CAME AND EVALUATED PATIENT. PER DR. ARIAS INFORMED HIM OF POTASSIUM LEVEL 2.8. PER DR. ARIAS ORDER FOR POTASSIUM 50 MEQS IV INSTEAD OF 40 MEQS. ERA IS MADE AWARE OF ADJUSTED ORDERED TO 50 MEQS IV TOTAL. AND PER DR. ARIAS ORDER FOR SWALLOW EVAL.
--- NOTE | 2020-05-29 09:50 | NUR ---
BELT BUILDER NOTE POTASSIUM REPLACEMENT PO PLACED BY PHARMACY MARTINE FREY IS TO COINCIDE WITH IV REPLACEMENT POTASSIUM THEY SPOKE WITH MD MARTINE FREY.
[2020-05-29] MEDS: POTASSIUM CHLORIDE 20 MEQ TAB.PRT.SR PO SCH ×4 (10:30→13:58)
[2020-05-29] MEDS: VALSARTAN 80 MG TABLET PO SCH (10:30)
[2020-05-29] MEDS: POTASSIUM CL. PREMIX PERIPHER. 50 ML IV SCH ×5 (10:31→15:06)
[2020-05-29] MEDS ORDERED: POTASSIUM CHLORIDE 20 MEQ POWDER PACKET PO SCH (14:00)
--- NOTE | 2020-05-29 16:18 | NUR ---
SPARE FIXER NOTE PER DR. ARIAS ORDER POTASSIUM LAB AFTER LAST BOLUS OF POTASSIUM REPLACEMENT .
--- NOTE | 2020-05-29 18:07 | NUR ---
RESAW OPERATOR NOTE INFORMED DR. ARIAS OF POTASSIUM LEVEL 3.[address] ARIAS MADE AWARE AND PER RECHECK LAB TOMORROW AM.
--- NOTE | 2020-05-29 19:00 | NUR ---
DIMENSIONAL INTEGRATION ENGINEER CLOSING NOTE PATIENT IN BED RESTING COMFORTABLY. PATIENT IN NO ACUTE DISTRESS. NO SOB NOTED. PATIENT BREATHING IS EVEN AND UNLABORED. PATIENT ON CARDIAC MONITORING READING SINUS RHYTHM HR 94. SAFETY PRECAUTIONS IN PLACE. PATIENT WITH 1:1 SITTER. PATIENT KEPT CLEAN, DRY AND COMFORTABLE THROUGHOUT SHIFT. BED ALARM IS ON. PATIENT BED IS LOCKED AND IN LOWEST POSITION. CALL LIGHT WITHIN REACH. WILL ENDORSE CARE TO PM SHIFT FOR AMANDA.
[2020-05-30] VITALS: BP 171/82
[2020-05-30] MEDS: METOCLOPRAMIDE HCL 10 MG/2 ML VIAL IV SCH ×4 (00:49→17:23)
[2020-05-30] MEDS: HYDROMORPHONE HCL 2 MG TABLET PO SCH ×4 (00:49→17:21)
[2020-05-30] MEDS: LORAZEPAM 1 MG TABLET PO SCH ×4 (00:49→17:20)
[2020-05-30] MEDS: hydrALAZINE HCL IV 20 MG VIAL IV PRN (00:50)
[2020-05-30 04:00] VITALS: BP 157/87
--- NOTE | 2020-05-30 06:37 | NUR ---
UNDERCOLLAR BASTER NOTES AWAKE. RESPONDS TO TACTILE & PAINFUL STIMULI. NOT IN ANY DISTRESS. NO SOB NOTED. NO S/SX OF ANY PAIN OR DISCOMFORT AT THIS TIME. ON TELE SR @ 94 WITH IVF INFUSING WELL. WITH F/C DRAINING TO YELLOWISH OUTPUT MODERATE IN AMOUNT. AM CARE DONE. MONITORED ACCORDINGLY WITH SITTER AT BEDSIDE. CALL LIGHT WITHIN REACH. BED IN LOWEST POSITION. SR UP X 3 WITH BED ALARM ON FOR SAFETY. WILL ENDORSE TO NEXT SHIFT.
[2020-05-30 07:59] LABS: BASOPHILS # (AUTO) 0.1 /CMM (0.0-0.2); BASOPHILS % (AUTO) 0.5 % (0.0-2.0); EOSINOPHILS % (AUTO) 0.8 % (0.0-6.0); HEMATOCRIT 40 % (39-51); LYMPHOCYTES # (AUTO) 0.9 /CMM (0.8-4.8); LYMPHOCYTES % (AUTO) 9.1 % (20.0-44.0); MEAN CORPUSCULAR HGB CONC 33 g/dl (31.0-36.0); MEAN CORPUSCULAR VOLUME 93 fL (80-96); MONOCYTES # (AUTO) 0.8 /CMM (0.1-1.30); MONOCYTES % (AUTO) 8.4 % (2.0-12.0); NEUTROPHILS # (AUTO) 8.2 /CMM (1.8-8.9); NEUTROPHILS % (AUTO) 81.2 % (43.0-81.0); PLATELET COUNT (AUTO) 392 /CMM (150-450); RED BLOOD CELL COUNT(AUTO) 4.25 MIL/uL (4.5-6.0); WHITE BLOOD COUNT (AUTO) 10.1 K/uL (4.3-11.0)
--- NOTE | 2020-05-30 08:00 | NUR ---
CURTAIN FRAMER OPENING NOTES Received Patient resting in bed. A/O x 1-2. Noted increased BP of 185/89. Will intervene as ordered. Otherwise VS stable with no acute distress. Breathing even and unlabored on 2LPM via NC with no respiratory distress. Patient shaking and trembling. Will intervene for pain management as ordered. Telemonitor in place and patent reading SR with HR-98. MICHAEL Midline intact, patent and flushing well with NS infusing at 75ml/hr. Lopez Cath in place and patent. Safety precautions in place. Bed locked and set to lowest position with side rails x 2 up. All needs rendered at this time. Call light within reach. Will continue to monitor.
[2020-05-30 08:12] LABS: ALBUMIN 2.9 g/dL (3.4-5.0); BILIRUBIN,TOTAL 0.4 mg/dL (0.2-1.0); CALCIUM, SERUM 8.8 mg/dL (8.5-10.1); CREATININE 0.5 mg/dL (0.6-1.3); MAGNESIUM 1.8 mg/dL (1.8-2.4); PHOSPHORUS 2.8 mg/dL (2.5-4.9); POTASSIUM 3.1 mmol/L (3.5-5.1); TOTAL PROTEIN, SERUM 7.2 g/dL (6.4-8.2)
[2020-05-30] MEDS: PANTOPRAZOLE 40 MG TABLET.DR PO SCH (09:25)
[2020-05-30] MEDS: LEVETIRACETAM (500MG) 500 MG in IV NS 0.9% 100 ML IV SCH (09:27)
[2020-05-30] MEDS: VALSARTAN 80 MG TABLET PO SCH ×2 (09:28→17:19)
[2020-05-30] MEDS: ISOSORBIDE DINITRATE (20MG) 20 MG TABLET PO SCH ×2 (09:28→17:19)
[2020-05-30] MEDS: MINOXIDIL (2.5MG) 2.5 MG TABLET PO SCH ×2 (09:28→17:20)
[2020-05-30] MEDS: hydrALAZINE HCL 50 MG TABLET PO SCH ×3 (09:28→17:19)
[2020-05-30] MEDS ORDERED: AMLODIPINE BESYLATE 10 MG TABLET PO PRN (09:30)
[2020-05-30] MEDS: ENOXAPARIN SODIUM 40 MG/0.4 ML DISP.SYRIN SQ SCH (09:38)
[2020-05-30] MEDS: AMLODIPINE BESYLATE 10 MG TABLET PO SCH (09:39)
[2020-05-30] MEDS: CLOTRIMAZOLE 1% 15 GM TUBE TP SCH ×2 (09:47→17:28)
[2020-05-30] MEDS ORDERED: POTASSIUM CHLORIDE 20 MEQ TAB.PRT.SR PO SCH (10:00)
[2020-05-30] MEDS: POTASSIUM CHLORIDE 20 MEQ POWDER PACKET PO SCH ×3 (10:07→11:44)
[2020-05-30] MEDS ORDERED: NALOXONE HCL 0.4 MG/ML AMPUL IV PRN (13:00)
[2020-05-30] MEDS: oxyCODONE HCL SR 20MG TAB.SR.12H PO SCH ×2 (13:13→21:00)
[2020-05-30] MEDS: CARISOPRODOL 350 MG TABLET PO SCH ×2 (13:13→17:20)
[2020-05-30] MEDS: IV NS 0.9% 1,000 ML IV PRN (17:37)
--- NOTE | 2020-05-30 19:20 | NUR ---
MS RN CLOSING NOTES Patient resting in bed. A/O x 1-2. VS stable with no acute distress noted. Breathing even and unlabored on 2LPM via NC with no respiratory distress. Patient comfortable and resting. No signs and symptoms of pain. MICHAEL Midline intact, patent and flushing well with NS infusing at 75ml/hr. Lopez Cath in place and patent. Safety precautions in place. Bed locked and set to lowest position with side rails x 3 up. All needs rendered at this time. Call light within reach. Will endorse plan of care to oncoming shift.
--- NOTE | 2020-05-30 19:25 | NUR ---
MS RN OPENING NOTES: RECEIVED PATIENT IN BED, ASLEEP, AROUSABLE, SLIGHTLY LETHARGIC, NON-VERBAL, ABLE TO COMMUNICATE BY NODDING HIS HEAD. WITH THE SITTER AT THE BEDSIDE. CALL LIGHT WITHIN REACH. BED ALARM ON. BED IN LOWEST AND LOCKED POSITION. WITH SCD'S ON BOTH LEGS. RN DAYSHIFT SUCTIONED THE PATIENT'S ORAL SECRETIONS. HOB ELEVATED AT ALL TIMES. WITH O2 AT 3L/MIN NASAL CANNULA.
[2020-05-30 20:00] VITALS: BP 107/52
[2020-05-30] MEDS: LEVETIRACETAM (250 MG) 250 MG TABLET PO SCH (22:07)
[2020-05-31] MEDS: METOCLOPRAMIDE HCL 10 MG/2 ML VIAL IV SCH ×4 (00:14→18:12)
[2020-05-31] MEDS: HYDROMORPHONE HCL 2 MG TABLET PO SCH ×4 (00:15→18:12)
[2020-05-31] MEDS: LORAZEPAM 1 MG TABLET PO SCH ×4 (00:15→18:12)
[2020-05-31] MEDS: IV NS 0.9% 1,000 ML IV PRN (05:58)
--- NOTE | 2020-05-31 06:42 | NUR ---
MS RN CLOSING NOTES: PATIENT IN BED, AWAKE. A/O X1-2. PATIENT ABLE TO TALK NOW ONE WORD AT A TIME. HOB ELEVATED AT ALL TIMES. ABLE TO SWALLOW CRUSHED PILLS WITH APPLE SAUCE AND PUDDING VERY SLOWLY, NO COUGHING NOTED. NO SOB NOTED. NO SEIZURES NOTED. BED ALARM ON. BED IN LOWEST AND LOCKED POSITION. WITH THE SITTER AT THE BEDSIDE. WITH 02 AT 2L/MIN. WITH SCD'S ON BOTH LEGS.WITH MCCAIN CATHETER INTACT,NO HEMATURIA. V/S WNL. AFEBRILE. CALL LIGHT WITHIN REACH.
--- NOTE | 2020-05-31 08:00 | NUR ---
MS RN OPENING NOTES Received Patient resting in bed. A/O x 1-2. VS stable with no acute distress noted. Breathing even and unlabored on 2LPM via NC with no respiratory distress. Denies pain. No signs and symptoms of pain. MICHAEL Midline intact, patent and flushing well with NS infusing at 75ml/hr. Lopez Cath in place and patent. Safety precautions in place. Bed locked and set to lowest position with side rails x 3 up. Sitter at bedside. All needs rendered at this time. Call light within reach. Will continue to monitor.
[2020-05-31] MEDS: hydrALAZINE HCL 50 MG TABLET PO SCH ×3 (08:38→18:10)
[2020-05-31] MEDS: PANTOPRAZOLE 40 MG TABLET.DR PO SCH (08:38)
[2020-05-31] MEDS: LEVETIRACETAM (250 MG) 250 MG TABLET PO SCH ×2 (08:39→21:57)
[2020-05-31] MEDS: VALSARTAN 80 MG TABLET PO SCH ×2 (08:39→18:11)
[2020-05-31] MEDS: ISOSORBIDE DINITRATE (20MG) 20 MG TABLET PO SCH ×2 (08:39→18:11)
[2020-05-31] MEDS: AMLODIPINE BESYLATE 10 MG TABLET PO SCH (08:40)
[2020-05-31] MEDS: MINOXIDIL (2.5MG) 2.5 MG TABLET PO SCH ×2 (08:40→18:11)
[2020-05-31] MEDS: oxyCODONE HCL SR 20MG TAB.SR.12H PO SCH ×2 (08:40→21:00)
[2020-05-31] MEDS: CARISOPRODOL 350 MG TABLET PO SCH ×2 (08:41→18:11)
[2020-05-31] MEDS: CLOTRIMAZOLE 1% 15 GM TUBE TP SCH ×2 (08:41→17:00)
[2020-05-31] MEDS: ENOXAPARIN SODIUM 40 MG/0.4 ML DISP.SYRIN SQ SCH (08:42)
[2020-05-31 12:35] LABS: BASOPHILS # (AUTO) 0.1 /CMM (0.0-0.2); BASOPHILS % (AUTO) 0.5 % (0.0-2.0); HEMATOCRIT 38 % (39-51); HEMOGLOBIN 12.4 g/dL (13.5-17.5); LYMPHOCYTES # (AUTO) 1.2 /CMM (0.8-4.8); LYMPHOCYTES % (AUTO) 12.4 % (20.0-44.0); MEAN CORPUSCULAR HGB CONC 33 g/dl (31.0-36.0); MEAN CORPUSCULAR VOLUME 94 fL (80-96); MONOCYTES # (AUTO) 0.6 /CMM (0.1-1.30); MONOCYTES % (AUTO) 6.7 % (2.0-12.0); NEUTROPHILS # (AUTO) 7.7 /CMM (1.8-8.9); NEUTROPHILS % (AUTO) 79.4 % (43.0-81.0); PLATELET COUNT (AUTO) 412 /CMM (150-450); RED BLOOD CELL COUNT(AUTO) 4.07 MIL/uL (4.5-6.0); WHITE BLOOD COUNT (AUTO) 9.7 K/uL (4.3-11.0)
[2020-05-31 12:38] LABS: MAGNESIUM 1.7 mg/dL (1.8-2.4); PHOSPHORUS 3.1 mg/dL (2.5-4.9)
--- NOTE | 2020-05-31 14:00 | NUR ---
MS RN NOTES Removed Lopez Cath at this time. Patient tolerated well. Will continue to monitor.
--- NOTE | 2020-05-31 19:30 | NUR ---
MS RN NOTES BP- 86/53, HR- 125.
--- NOTE | 2020-05-31 19:45 | NUR ---
MS RN NOTES BP- 99/57, HR- 123.
--- NOTE | 2020-05-31 19:49 | NUR ---
MS RN OPENING NOTES Received Patient resting in bed. A/O x 1-2. VS stable with no acute distress noted. Breathing even and unlabored on 2LPM via NC with no respiratory distress. Denies pain. No signs and symptoms of pain. MICHAEL Midline intact, patent and flushing well. Safety precautions in place. Bed locked and set to lowest position with side rails x 3 up. Sitter at bedside. All needs rendered at this time. Call light within reach. Will endorse plan of care to oncoming shift. Addendum: 05/31/20 at 1950 by JENNIFER SAM RN ERROR DISREGARD
--- NOTE | 2020-05-31 19:50 | NUR ---
MS RN CLOSING NOTES Patient resting in bed. A/O x 1-2. VS stable with no acute distress noted. Breathing even and unlabored on 2LPM via NC with no respiratory distress. Denies pain. No signs and symptoms of pain. MICHAEL Midline intact, patent and flushing well. Safety precautions in place. Bed locked and set to lowest position with side rails x 3 up. Sitter at bedside. All needs rendered at this time. Call light within reach. Will endorse plan of care to oncoming shift.
[2020-05-31 20:00] VITALS: BP 99/57
--- NOTE | 2020-05-31 20:00 | NUR ---
MS RN OPENING NOTES RECEIVED PATIENT IN BED, AWAKE, A/0 X 1-2, O2 AT 2LPM VIA NASAL CANNULA, UNLABORED BREATHING, NO SIGNS OF DISTRESS, MICHAEL MIDLINE, NO COMPLAINS OF PAIN, SIDE RAILS UP.
--- NOTE | 2020-05-31 20:00 | NUR ---
MS RN NOTES JBP- 91/51, HR- 112.
--- NOTE | 2020-05-31 21:00 | NUR ---
MS RN NOTES LEFT LEG BP- 94/48, HR- 104; LEFT ARM BP- 85/48, HR- 106. INFORMED CHARGE NURSE. HOLD OXYCODONE FOR LOW BP.
--- NOTE | 2020-05-31 22:00 | NUR ---
MS RN NOTES LEFT ARM BP- 89/49, HR- 115; LEFT LEG BP- 91/51, HR- 111.
--- NOTE | 2020-06-01 | NUR ---
MS RN NOTES LEFT ARM BP-108/64, HR- 118; LEFT LEG BP- 115/61, HR- 118. DILAUDID 1 MG NOT GIVEN. DECREASE BP. INFORMED CHARGE NURSE.
[2020-06-01] MEDS: LORAZEPAM 1 MG TABLET PO SCH ×4 (00:59→17:03)
[2020-06-01] MEDS: METOCLOPRAMIDE HCL 10 MG/2 ML VIAL IV SCH ×4 (00:59→17:02)
[2020-06-01 04:00] VITALS: BP 111/71
[2020-06-01 06:15] LABS: BASOPHILS # (AUTO) 0.1 /CMM (0.0-0.2); BASOPHILS % (AUTO) 0.6 % (0.0-2.0); EOSINOPHILS % (AUTO) 1.8 % (0.0-6.0); HEMATOCRIT 39 % (39-51); HEMOGLOBIN 12.8 g/dL (13.5-17.5); LYMPHOCYTES # (AUTO) 0.9 /CMM (0.8-4.8); LYMPHOCYTES % (AUTO) 10.5 % (20.0-44.0); MEAN CORPUSCULAR HGB CONC 33 g/dl (31.0-36.0); MEAN CORPUSCULAR VOLUME 93 fL (80-96); MONOCYTES # (AUTO) 0.8 /CMM (0.1-1.30); MONOCYTES % (AUTO) 8.5 % (2.0-12.0); NEUTROPHILS # (AUTO) 7.1 /CMM (1.8-8.9); NEUTROPHILS % (AUTO) 78.6 % (43.0-81.0); PLATELET COUNT (AUTO) 386 /CMM (150-450); RED BLOOD CELL COUNT(AUTO) 4.17 MIL/uL (4.5-6.0)
[2020-06-01] MEDS: HYDROMORPHONE HCL 2 MG TABLET PO SCH ×4 (06:22→17:02)
[2020-06-01 06:37] LABS: ALBUMIN 2.7 g/dL (3.4-5.0); BILIRUBIN,TOTAL 0.2 mg/dL (0.2-1.0); CALCIUM, SERUM 8.5 mg/dL (8.5-10.1); CREATININE 0.7 mg/dL (0.6-1.3); MAGNESIUM 1.8 mg/dL (1.8-2.4); PHOSPHORUS 3.5 mg/dL (2.5-4.9); TOTAL PROTEIN, SERUM 6.7 g/dL (6.4-8.2)
--- NOTE | 2020-06-01 06:51 | NUR ---
MS RN CLOSING NOTES ENDORSED PATIENT IN BED, AWAKE, A/0 X 1-2, O2 AT 2LPM VIA NASAL CANNULA, UNLABORED BREATHING, NO SIGNS OF DISTRESS, MICHAEL MIDLINE, NO COMPLAINS OF PAIN, DUE MEDS GIVEN, NO SEIZURE IN MY SHIFT, PATIENT ABLE TO SWALLOW MEDS BY CRUSHED, SIDE RAILS UP FOR SAFETY.
[2020-06-01] MEDS: PANTOPRAZOLE 40 MG TABLET.DR PO SCH (07:37)
--- NOTE | 2020-06-01 07:52 | NUR ---
M/S RN OPENING NOTES RECEIVED PT ON BED, A/OX1, SLEEPING BUT EASILY AROUSABLE. RESPIRATION EVEN AND NON LABORED WITH NO ACUTE RESPIRATORY DISTRESS, ON O2 AT 2LPM VIA N/C, HOB ELEVATED. PT WITH SITTER DUE TO EPISODES OF CONFUSION, FOR SAFETY PRECAUTION. ABD SOFT AND NON DISTENDED WITH ACTIVE BOWEL SOUNDS. NO S/SX OF PAIN AND DISCOMFORT, PAIN MEDICATION ADMINSTYERED AT 0622 PER DEC. SKIN WARM TO TOUCH AND DRY. IV SITE AT RIGHT UPPER MIDLINE, PATENT IN FLUSHING. CONTINUE TO PROVIDE SAFETY ENVIRONMENT, BED IN LOW LOCKED POSITION, SRX2 UP FOR SAFETY. WILL CONTINUE TO MONITOR CARE.
[2020-06-01 08:00] VITALS: BP 129/62
[2020-06-01] MEDS: CLOTRIMAZOLE 1% 15 GM TUBE TP SCH ×2 (09:14→17:08)
[2020-06-01] MEDS: ISOSORBIDE DINITRATE (20MG) 20 MG TABLET PO SCH ×2 (09:14→17:03)
[2020-06-01] MEDS: LEVETIRACETAM (250 MG) 250 MG TABLET PO SCH ×2 (09:15→21:01)
[2020-06-01] MEDS: MINOXIDIL (2.5MG) 2.5 MG TABLET PO SCH ×2 (09:15→17:03)
[2020-06-01] MEDS: hydrALAZINE HCL 50 MG TABLET PO SCH ×3 (09:15→17:03)
[2020-06-01] MEDS: CARISOPRODOL 350 MG TABLET PO SCH ×2 (09:15→17:03)
[2020-06-01] MEDS: VALSARTAN 80 MG TABLET PO SCH ×2 (09:15→17:03)
[2020-06-01] MEDS: AMLODIPINE BESYLATE 10 MG TABLET PO SCH (09:15)
[2020-06-01] MEDS: oxyCODONE HCL SR 20MG TAB.SR.12H PO SCH ×2 (09:16→21:01)
[2020-06-01] MEDS: ENOXAPARIN SODIUM 40 MG/0.4 ML DISP.SYRIN SQ SCH (09:17)
[2020-06-01] MEDS: POTASSIUM CHLORIDE 20 MEQ TAB.PRT.SR PO SCH ×5 (09:18→14:23)
--- NOTE | 2020-06-01 12:04 | NUR ---
M/S RN NOTES PT SEEN AND EVALUATED BY MS. ERA GOSS NP. WAITING FOR PYSCH EVAL AND PT EVAL. NO NEW ORDERS. WILL CONTINUE TO MONITOR CARE
[2020-06-01 16:00] VITALS: BP 115/62
--- NOTE | 2020-06-01 17:43 | NUR ---
M/S RN NOTES RELAYED CONCERN OF DAUGHTER CARON TO MS. [place]OL[place] VALENCIA. PRIVATE ROOM FOR THE PATIENT AND XRAY PRIOR TO DC. OBTAINED ORDER FROM MANAGER MEDIA RELATIONS TO DO XRAY IN AM. DC PLANNING TOMORROW. WAITING FOR PT EVAL. ORDER READ BACK, NOTED AND CARRIED OUT. WILL CONT TO MONITOR CARE. DAUGHTER NOTIFIED.
--- NOTE | 2020-06-01 18:45 | NUR ---
M/S RN CLOSING NOTES PT A/OX1, NAME ONLY. NO PRESENCE OF ACUTE RESPIRATORY DISTRESS, ON O2 AT 2LPM VIA N/C, HOB ELEVATED AT ALL TIMES. ABD SOFT AND NON DISTENDED WITH ACTIVE BOWEL SOUNDS, BM TODAY. SKIN WARM TO TOUCH AND DRY, NO NEW SKIN BREAKDOWN, NO EDEMA. NO S/SX OF PAIN AND DISCOMFORT. IV SITE AT RIGHT UPPER MIDLINE, PATENT IN FLUSHING, NO S/SX OF INFILTRATION. PT ON 1:1 SITTER. ALL CARE ATTENDED, BED IN LOW LOCKED POSITION, SR X3 UP FOR SAFETY. ENDORSED CARE TO NEXT SHIFT
--- NOTE | 2020-06-01 19:05 | NUR ---
RN MS OPENING NOTES RECEIVED PATIENT IN BED, AWAKE ALERT AND ORIENTED 2, ABLE TO MAKE SIMPLE NEEDS KNOWN NOTED WITH PERIODS OF FORGETFULNESS, RESPIRATIONS EVEN AND UNLABORED WITH EQUAL RISE AND FALL OF CHEST TOLERATING RA WELL AT THIS TIME, SP02 WNL. PERINEAL CARE PROVIDED, REMAINS CLEAN AND DRY, REPOSITIONED , SITTER AT BEDSIDE SAFETY PRECAUTIONS IN PLACE, LOW BED AND LOCKED, MICHAEL MIDLINE INTACT AND PATENT, DRESSING IS C/D/I. ORIENTED TO STAFF AND CALL LIGHT AND KEPT WITHIN REACH ALL NEEDS ATTENDED WILL CONTINUE TO MONITOR AND ATTEND TO NEEDS.
[2020-06-01 20:00] VITALS: BP 142/74
[2020-06-02] MEDS: METOCLOPRAMIDE HCL 10 MG/2 ML VIAL IV SCH ×3 (00:05→11:29)
[2020-06-02] MEDS: HYDROMORPHONE HCL 2 MG TABLET PO SCH ×4 (00:05→11:49)
[2020-06-02] MEDS: LORAZEPAM 1 MG TABLET PO SCH ×4 (00:05→11:49)
--- NOTE | 2020-06-02 07:02 | NUR ---
RN MS CLOSING NOTES PATIENT IN BED, AWAKE ALERT AND ORIENTEDX 2, ABLE TO MAKE SIMPLE NEEDS KNOWN NOTED WITH PERIODS OF FORGETFULNESS, RESPIRATIONS EVEN AND UNLABORED WITH EQUAL RISE AND FALL OF CHEST TOLERATING RA WELL AT THIS TIME, SP02 WNL. PERINEAL CARE PROVIDED, REMAINS CLEAN AND DRY, REPOSITIONED , SNACKS AND FLUIDS OFFERED TOLERATED WELL, WOUND CARE DONE ORDERED, SITTER AT BEDSIDE SAFETY PRECAUTIONS IN PLACE, LOW BED AND LOCKED, MICHAEL MIDLINE INTACT AND PATENT, DRESSING IS C/D/I. CALL LIGHT KEPT WITHIN REACH ALL NEEDS ATTENDED WILL CONTINUE TO MONITOR AND ATTEND TO NEEDS AND ENDORSE TO NEXT SHIFT.ALL DUE MEDS GIVEN, NO ADVERSE REACTIONS.SLEPT WELL.
[2020-06-02 07:07] LABS: CALCIUM, SERUM 8.7 mg/dL (8.5-10.1); CREATININE 0.8 mg/dL (0.6-1.3); POTASSIUM 3.1 mmol/L (3.5-5.1)
--- NOTE | 2020-06-02 08:00 | NUR ---
m/s hi teacher: initial assessment received pt in bed awake, a/ox2 with anxiousness. sitter at bedside. pt wants to go home today. reality orientation provided prn.
[2020-06-02] MEDS: hydrALAZINE HCL 50 MG TABLET PO SCH ×3 (08:26→17:00)
[2020-06-02] MEDS: ISOSORBIDE DINITRATE (20MG) 20 MG TABLET PO SCH ×2 (08:26→17:00)
[2020-06-02] MEDS: CARISOPRODOL 350 MG TABLET PO SCH ×2 (08:26→17:00)
[2020-06-02] MEDS: PANTOPRAZOLE 40 MG TABLET.DR PO SCH (08:27)
[2020-06-02] MEDS: LEVETIRACETAM (250 MG) 250 MG TABLET PO SCH (08:27)
[2020-06-02] MEDS: oxyCODONE HCL SR 20MG TAB.SR.12H PO SCH (08:27)
[2020-06-02] MEDS: ENOXAPARIN SODIUM 40 MG/0.4 ML DISP.SYRIN SQ SCH (08:28)
[2020-06-02] MEDS: CLOTRIMAZOLE 1% 15 GM TUBE TP SCH (08:30)
--- NOTE | 2020-06-02 10:00 | NUR ---
m/s spring production supervisor: md visit dr. ayala at bedside and discussing plan of care. pt wants to go home today. order received to d'c pt home with home health. case management will make arrangement.
[2020-06-02] MEDS: AMLODIPINE BESYLATE 10 MG TABLET PO SCH (10:10)
[2020-06-02] MEDS: VALSARTAN 80 MG TABLET PO SCH ×2 (10:10→17:00)
[2020-06-02] MEDS: MINOXIDIL (2.5MG) 2.5 MG TABLET PO SCH ×2 (10:10→17:00)
[2020-06-02] MEDS: POTASSIUM CHLORIDE 20 MEQ POWDER PACKET PO SCH ×2 (10:15→11:24)
[2020-06-02] MEDS ORDERED: POTASSIUM CHLORIDE 20 MEQ POWDER PACKET PO SCH (11:00)
--- NOTE | 2020-06-02 12:43 | NUR ---
m/s mold finisher: notes report given to liz (rn) for continuity of care. pt for d'c planning to home with home health today.
[2020-06-02 16:00] VITALS: BP 102/46
--- NOTE | 2020-06-02 16:28 | NUR ---
1:00pm This SW attempted to meet with the patient at bedside for a family concern/power of assistant attorney general consult requested by Violeta Gonzalez NP. Patient was alert and oriented x2. This SW to attempt to speak with family.
[2020-06-02 17:00] VITALS: BP 102/46
--- NOTE | 2020-06-02 18:00 | NUR ---
RN NOTE RIGHT UPPER ARM MIDLINE REMOVED. NO MISSING PART. NO BLEEDING.
--- NOTE | 2020-06-02 18:09 | NUR ---
RN NOTE SOMA 350 DUE AT 1700 IS NOT ADMINISTERED DUE TO PATIENT BEING DROWSY AND BP OF 102/46.
--- NOTE | 2020-06-02 18:27 | NUR ---
RN NOTE DISCHARGE EDUCATION PROVIDED TO THE PATIENT AND DAUGHTER. VERBALIZED UNDERSTANDING. THE PATIENT LEFT THE HOSPITAL IN STABLE CONDITION.
== END 2020-06-02 18:15 | disposition home health service (06) | DRG 207 ==
LOC: ER 14:31 → MED 21:02 → ICU 05-21 07:36 → MED 05-28 10:59 → TELE 05-28 11:01 → MED 05-30 10:04
PROVIDERS: ADMIT Family Medicine; ATTEND Nurse Practitioner Acute Care
PROC: 5A1955Z Respiratory Ventilation, Greater than 96 Consecutive Hours (ICD-10-PCS; principal; 2020-05-20)
PROC: 0BH18EZ Insertion of Endotracheal Airway into Trachea, Via Natural or Artificial Opening Endoscopic (ICD-10-PCS; 2020-05-20)
PROC: 05H933Z Insertion of Infusion Device into Right Brachial Vein, Percutaneous Approach (ICD-10-PCS; 2020-05-20)
DX: J96.01 Acute respiratory failure with hypoxia (principal); G93.41 Metabolic encephalopathy; F11.23 Opioid dependence with withdrawal; D83.9 Common variable immunodeficiency, unspecified; G93.1 Anoxic brain damage, not elsewhere classified; F13.239 Sedative, hypnotic or anxiolytic dependence with withdrawal, unspecified; F11.20 Opioid dependence, uncomplicated; D63.8 Anemia in other chronic diseases classified elsewhere; E83.39 Other disorders of phosphorus metabolism; E86.0 Dehydration; K52.9 Noninfective gastroenteritis and colitis, unspecified; Z88.2 Allergy status to sulfonamides; Z88.1 Allergy status to other antibiotic agents; Z91.011 Allergy to milk products; R73.9 Hyperglycemia, unspecified; G40.909 Epilepsy, unspecified, not intractable, without status epilepticus; F32.9 Major depressive disorder, single episode, unspecified; I10 Essential (primary) hypertension; F41.9 Anxiety disorder, unspecified; E87.6 Hypokalemia; M48.00 Spinal stenosis, site unspecified; G89.4 Chronic pain syndrome; K63.89 Other specified diseases of intestine
CPT/HCPCS: 31720; 36415; 36600; 70450-TC; 71045-TC; 74018; 80048-TC; 80053-TC; 80061-TC; 80076-TC; 80305; 81000-TC; 82088; 82140-TC; 82436-TC; 82803-TC; 82962-TC; 83605-TC; 83735-TC; 83880; 83935-TC; 84100-TC; 84132-TC; 84133-TC; 84244; 84300-TC; 84443-TC; 84478-TC; 84484-TC; 85025-TC; 87040-TC; 87081-TC; 87086-TC; 92521; 92611-TC; 93307-TC; 94002-TC; 94003-TC; 94760-TC; 94799-TC; 95819-TC; 97116-TC; 97530-TC; A4216; A4624; A6403; A9563; C9803-CS; G0378; G0480; J0330; J0360; J0456; J0696; J1170; J1650; J1953; J2060; J2405; J2704; J2765; J3480; J3490; J7030; J7042; J7050; J7060; Q9967

== ENCOUNTER 2020-06-19 15:45 | Inpatient (IN) | payer MEDICARE, BC ==
[~2020-06-19] VITALS: Ht 170.2 cm; Wt 58.7 kg
[~2020-06-19 15:45] MED LIST: CARI350T PO; DEXL60CA3 PO; HYDR8TAB2 PO; LORA-259 IV; MINO2.5T PO; ZOLP10TA2 PO
--- NOTE | 2020-06-19 15:47 | NUR ---
rosalia, from home, c/o left wrist pain s/p fall 2 days ago, to ER bed 9, changed to hosp gown, hooked to BP cuff and monitor, provided w warm blanket, patient aao x 0, breathing even and unlabored, no distress noted. awaiting MD ma
--- NOTE | 2020-06-19 16:04 | NUR ---
DR IZQUIERDO AT BEDSIDE
--- NOTE | 2020-06-19 16:20 | NUR ---
MOVE SHEET SUBMITTED AND CALLED FOR MS BED.
[2020-06-19 16:39] LABS: BASOPHILS % (AUTO) 0.3 % (0.0-2.0); EOSINOPHILS % (AUTO) 0.3 % (0.0-6.0); HEMATOCRIT 33 % (39-51); HEMOGLOBIN 10.8 g/dL (13.5-17.5); LYMPHOCYTES # (AUTO) 0.4 /CMM (0.8-4.8); MEAN CORPUSCULAR HGB CONC 33 g/dl (31.0-36.0); MEAN CORPUSCULAR VOLUME 94 fL (80-96); MONOCYTES # (AUTO) 0.3 /CMM (0.1-1.30); MONOCYTES % (AUTO) 6.6 % (2.0-12.0); NEUTROPHILS # (AUTO) 4.1 /CMM (1.8-8.9); NEUTROPHILS % (AUTO) 84.8 % (43.0-81.0); PLATELET COUNT (AUTO) 264 /CMM (150-450); RED BLOOD CELL COUNT(AUTO) 3.48 MIL/uL (4.5-6.0); WHITE BLOOD COUNT (AUTO) 4.8 K/uL (4.3-11.0)
--- NOTE | 2020-06-19 16:39 | NUR ---
rag grader at bedside for xray
[2020-06-19 16:51] LABS: CALCIUM, SERUM 8.7 mg/dL (8.5-10.1)
[2020-06-19] MEDS ORDERED: LACT1CAP72 PO (17:03)
[2020-06-19] MEDS ORDERED: HYDR-4077 PO (17:03)
[2020-06-19] MEDS ORDERED: LORA2TAB95 PO (17:03)
--- NOTE | 2020-06-19 17:35 | NUR ---
RAPID COVID SWAB DONE AND SENT TO LAB.
--- NOTE | 2020-06-19 18:14 | NUR ---
received a call from the lab regarding covid 19 result "negative"
--- NOTE | 2020-06-19 19:05 | NUR ---
MOTOCROSS RACER AWARE OF THE NEED FOR MS BED. AWAITING ROOM NUMBER.
--- NOTE | 2020-06-19 19:09 | NUR ---
REPORT GIVEN TO VIC CORONA FOR AMANDA
--- NOTE | 2020-06-19 19:22 | NUR ---
PT AAOX2, RESPIRATIONS EVEN AND UNLABORED ON RA W/ NAD NOTED. PT CONNECTED TO THE MONITOR AND POX. PT HAS NO MEDICAL COMPLAINTS AT THIS TIME.
--- NOTE | 2020-06-19 19:53 | NUR ---
NURSE WILL CALL BACK FOR REPORT
[2020-06-19] MEDS ORDERED: MAG HYDROX/AL HYDROX/SIMETH 30 ML UDC PO PRN (20:00)
[2020-06-19] MEDS ORDERED: Z GUARD REMEDY 2 OZ OINT TP PRN (20:00)
[2020-06-19] MEDS ORDERED: ONDANSETRON HCL/PF 4 MG/2 ML VIAL IVP PRN (20:00)
[2020-06-19] MEDS ORDERED: ACETAMINOPHEN 325 MG TABLET PO PRN (20:00)
[2020-06-19] MEDS ORDERED: NALOXONE HCL 0.4 MG/ML AMPUL IV PRN (20:00)
[2020-06-19] MEDS ORDERED: ZOLPIDEM TARTRATE 5 MG TABLET PO PRN (20:00)
[2020-06-19] MEDS ORDERED: MAGNESIUM HYDROXIDE 30 ML UDC PO PRN (20:00)
--- NOTE | 2020-06-19 20:13 | NUR ---
REPORT GIVEN TO CJ VILLATORO FOR AMANDA
--- NOTE | 2020-06-19 20:24 | NUR ---
LORETO CORONADO, FEATHER SAWYER AT BEDSIDE
[2020-06-19] MEDS ORDERED: LORAZEPAM 1 MG TABLET PO PRN (20:30)
[2020-06-19] MEDS ORDERED: HYDROMORPHONE HCL 2 MG TABLET PO PRN (20:30)
[2020-06-19 20:40] VITALS: BP 152/73
--- NOTE | 2020-06-19 20:41 | NUR ---
PT TRANSFERRED TO ROOM IN STABLE CONDITION VIA [facility] W/ EMT
[2020-06-19 20:45] VITALS: BP 154/73
--- NOTE | 2020-06-19 20:45 | NUR ---
CHERYL RECEIVED FROM ER A 64 Y/O MALE [employer]IA [employer] WITH CC OF PAIN ON LEFT WRIST FOR A PREVIOUS FALL, AND UNABLE TO TAKE CARE OF HIMSELF. ALERT/ORIENTED X3. ABLE TO PROVIDED OWN MED HX. GEN PAIN TOLERABLE FOR NOW. NO SOB, ASSISTED USING URINAL. PARTIAL SPONG BATH. LEFT UPPER ARM WITH BANDAID , REMOVED , HAS SMALL SKIN TEAR.. SOME RED SPOTS SEEN ON LEFT HAND. DRY SCABS ON UPPER BACK. PERINEAL BUTTOCKS REDNESS AND DRY SCABS ON LEFT BUTTOCK. ORIENTED TO ROOM FACILITIES. PLAN OF CARE AND TREATMENT PLAN AND MEDICATIN REGIMEN WITH PAIN MGT EXPLAINED TO PATIENT, APPEARS TO UNDERSTAND. SNACKS PROVIDED, ATE FAIRLY. ABLE TO POSITION SELF, KEPT COMFORTABLE. REMINDED TO CALL STAFF FOR ANY ASSISTANCE OR DISCOMFORTS. Call LIGHT WITHIN REACH. CLOSELY WATCHED.
[2020-06-19] MEDS ORDERED: ENOXAPARIN SODIUM 40 MG/0.4 ML DISP.SYRIN SQ SCH (21:00)
[2020-06-19] MEDS ORDERED: CARISOPRODOL 350 MG TABLET PO SCH (22:00)
[2020-06-20] MEDS: POTASSIUM CL. PREMIX PERIPHER. 50 ML IV SCH ×3 (01:53→03:55)
--- NOTE | 2020-06-20 02:48 | NUR ---
MSRN ASLEEP OF THIS TIME, POTASSIUM IV REPLACEMENT INFUSING WELL. CLOSELY WATCHED.
[2020-06-20 06:25] LABS: BASOPHILS % (AUTO) 0.4 % (0.0-2.0); EOSINOPHILS % (AUTO) 0.9 % (0.0-6.0); HEMATOCRIT 30 % (39-51); LYMPHOCYTES # (AUTO) 0.7 /CMM (0.8-4.8); LYMPHOCYTES % (AUTO) 20.3 % (20.0-44.0); MEAN CORPUSCULAR HGB CONC 34 g/dl (31.0-36.0); MEAN CORPUSCULAR VOLUME 93 fL (80-96); MONOCYTES # (AUTO) 0.4 /CMM (0.1-1.30); MONOCYTES % (AUTO) 11.1 % (2.0-12.0); NEUTROPHILS # (AUTO) 2.3 /CMM (1.8-8.9); NEUTROPHILS % (AUTO) 67.3 % (43.0-81.0); PLATELET COUNT (AUTO) 209 /CMM (150-450); RED BLOOD CELL COUNT(AUTO) 3.21 MIL/uL (4.5-6.0); WHITE BLOOD COUNT (AUTO) 3.4 K/uL (4.3-11.0)
--- NOTE | 2020-06-20 06:50 | NUR ---
MSRN OCC CONFUSED. IV SITE FLUSHED, PATENT, AFTER POTASSIUM BOLUSES. ALL NEEDS ATTENDED
[2020-06-20 06:55] LABS: ALBUMIN 2.6 g/dL (3.4-5.0); BILIRUBIN,TOTAL 0.3 mg/dL (0.2-1.0); CREATININE 0.8 mg/dL (0.6-1.3); MAGNESIUM 1.9 mg/dL (1.8-2.4); PHOSPHORUS 2.5 mg/dL (2.5-4.9); TOTAL PROTEIN, SERUM 6.1 g/dL (6.4-8.2)
[2020-06-20 07:18] LABS: THYROID STIMULATING HORMONE 1.037 uIU/mL (0.358-3.74)
[2020-06-20] MEDS ORDERED: PANTOPRAZOLE 40 MG TABLET.DR PO SCH (07:30)
--- NOTE | 2020-06-20 07:30 | NUR ---
RN Opening Note Received patient in bed, AO x 3, confuse, able to responds all stimuli. Pt does no appears pain or any discomfort, skin is warm to touch, kept clean/dry, intact IV site. Respiratory even and unlabored on room air o2sat 96%, no fever, no distress observed. Keep bed in locked with elevated HOB for ensure air and aspiration precaution, call light within reach, will continue to monitor.
[2020-06-20 08:24] VITALS: BP 178/82
[2020-06-20] MEDS ORDERED: hydrALAZINE HCL 50 MG TABLET PO SCH (09:00)
[2020-06-20] MEDS ORDERED: LACTOBACILLUS RHAMNOSUS GG 1 EACH CAP.SPRINK PO SCH (09:00)
--- NOTE | 2020-06-20 10:35 | NUR ---
WOUND CARE CONSULT: PT PRESENTS AMBULATORY AND CONTINENT WITH SOME RASH TO BUTTOCKS AND PERINEUM, PRESENT ON ADMISSION. RECOMMENDATIONS MADE FOR SKIN PROTECTION. DISCUSSED WITH NURSING STAFF. WILL SEE PRN. HILL IN AGREEMENT WITH PLAN OF CARE. Addendum: 06/20/20 at 1036 by ALISIA SMITH WNDNU Amended: Links added.
[2020-06-20] MEDS: POTASSIUM CHLORIDE 20 MEQ TAB.PRT.SR PO SCH ×2 (11:12→12:03)
--- NOTE | 2020-06-20 12:20 | NUR ---
Patient wanted go home and asked his daughter to pic him up to Hospital without MD order. Explained patient about the risks and consequences involved in leaving the hospital at this time, patient understanding verbally and sighed AMA form. Dr. Urbina made aware regarding above.
--- NOTE | 2020-06-20 15:08 | NUR ---
Patient left AMA before SW was able to speak with the patient.
[2020-06-20] MEDS ORDERED: CLOTRIMAZOLE 1% 15 GM TUBE TP SCH (17:00)
[2020-06-20] MEDS ORDERED: MINOXIDIL (2.5MG) 2.5 MG TABLET PO SCH (17:00)
== END 2020-06-20 12:25 | disposition left against medical advice (07) | DRG 913 ==
LOC: ER 16:02 → MED 19:32
PROVIDERS: ADMIT Hospitalist; ATTEND Hospitalist
DX: S69.92XA Unspecified injury of left wrist, hand and finger(s), initial encounter (principal); E43 Unspecified severe protein-calorie malnutrition; G93.41 Metabolic encephalopathy; D83.9 Common variable immunodeficiency, unspecified; F13.20 Sedative, hypnotic or anxiolytic dependence, uncomplicated; R62.7 Adult failure to thrive; I10 Essential (primary) hypertension; G89.4 Chronic pain syndrome; Z74.09 Other reduced mobility; D64.9 Anemia, unspecified; Z79.899 Other long term (current) drug therapy; M19.90 Unspecified osteoarthritis, unspecified site; Z88.1 Allergy status to other antibiotic agents; Z88.2 Allergy status to sulfonamides; Z91.011 Allergy to milk products; Z91.81 History of falling; W18.30XA Fall on same level, unspecified, initial encounter; E87.6 Hypokalemia; Y92.9 Unspecified place or not applicable; I70.0 Atherosclerosis of aorta
CPT/HCPCS: 36415; 71045-TC; 73110; 80048-TC; 80053-TC; 80061-TC; 80305; 83735-TC; 84100-TC; 84443-TC; 85025-TC; 85610-TC; 87081-TC; 97116-TC; 97530-TC; C9803-CS; G0378; G0480; J1650; J3480